=== PATIENT | male | born 1970 | race American Indian/Alaskan Native ===

== ENCOUNTER 2019-01-07 08:02 | Inpatient (IN) | payer MEDICAID ==
[2019-01-07] MEDS ORDERED: DUONEB *Not for PRN Use IH ONE (10:28)
--- NOTE | 2019-01-07 11:13 | XRay Report ---
AP CHEST: HISTORY: Dyspnea Moderate cardiomegaly and mild pulmonary venous congestion are identified. Trace bilateral pleural effusions could be present. No evidence for infiltrate or pneumothorax. The bony structures are grossly intact. IMPRESSION: Mild CHF.
--- NOTE | 2019-01-07 11:14 | Emergency Department Report ---
HPI - General Chief Complaint: Dyspnea/Respdistress Time Seen by Provider: 01/07/19 10:21 - HPI HPI: 48-year-old -Sy[place] male presents to the emergency department with a complaint of some shortness of breath and chest tightness has been going on s cristina last night. The shortness of breath worsens with laying flat or with exertion. He denies any significant lower extremity swelling. He has a past medical history of hypertension and CHF. He takes Bumex 2 g, which he took this morning. He denies any tobacco or illicit drug use. No recent travel or sick contacts at home. He does not have a primary care physician but his patient services clerk is Dr. Gr. ED Past Medical Hx - Social History Smoking Status: Never Smoker Substance Use Type: None - Medications Home Medications: Home Medications Medication Instructions Recorded Confirmed Last Taken Type Amlodipine Besylate [Norvasc] 5 mg PO QDAY 01/07/19 01/07/19 Unknown History Aspirin [Adult Aspirin] 81 mg PO DAILY 01/07/19 01/07/19 Unknown History Bumetanide [Bumetanide 2 mg tab] 2 mg PO DAILY 01/07/19 01/07/19 01/07/19 History Carvedilol [Coreg] 25 mg PO BID 01/07/19 01/07/19 01/07/19 History Ranitidine HCl [Zantac] 150 mg PO BID 01/07/19 01/07/19 Unknown History ED Review of Systems ROS: Stated complaint: shortness of breath Other details as noted in HPI Comment: All other systems reviewed and negative Constitutional: denies: chills, fever Eyes: denies: eye pain, vision change ENT: denies: ear pain, throat pain Respiratory: cough, shortness of breath Cardiovascular: chest pain. denies: palpitations Gastrointestinal: denies: abdominal pain, vomiting Genitourinary: denies: dysuria, discharge Musculoskeletal: denies: back pain, arthralgia Skin: denies: rash, lesions Neurological: denies: headache, weakness Physical Exam - Physical Exam Vital Signs: Vital Signs 01/07/19 01/07/19 01/07/19 08:16 08:47 09:00 Temperature 98.4 F Pulse Rate 85 79 80 Respiratory 22 28 H Rate Blood Pressure 154/125 126/95 O2 Sat by Pulse 98 97 95 Oximetry 01/07/19 01/07/19 01/07/19 09:15 09:30 09:45 Temperature Pulse Rate 80 80 77 Respiratory 25 H 26 H 22 Rate Blood Pressure 126/95 124/86 O2 Sat by Pulse 94 97 96 Oximetry 01/07/19 01/07/19 01/07/19 10:01 10:15 10:31 Temperature Pulse Rate 77 84 79 Respiratory 22 24 18 Rate Blood Pressure 179/104 179/104 179/104 O2 Sat by Pulse 95 98 97 Oximetry 01/07/19 10:45 Temperature Pulse Rate Respiratory Rate Blood Pressure 179/104 O2 Sat by Pulse 97 Oximetry Physical Exam: GENERAL: The patient is well-developed well-nourished. HENT: Normocephalic. Atraumatic. Patient has moist mucous membranes. EYES: Extraocular motions are intact. Pupils equal reactive to light bilaterally. NECK: Supple. Trachea is midline. CHEST/LUNGS: Coarse breath sounds. There is some mild tachypnea but no accessory muscle use.. There is no respiratory distress noted. HEART/CARDIOVASCULAR: Regular. There is no tachycardia. There is no murmur. ABDOMEN: Abdomen is soft, nontender. Patient has normal bowel sounds. There is no abdominal distention. SKIN: One plus pitting edema to the bilateral lower extremities. NEURO: The patient is awake, alert, and oriented. The patient is cooperative. The patient has no focal neurologic deficits. The patient has normal speech. MUSCULOSKELETAL: There is no tenderness or deformity. There is no evidence of acute injury. ED Course Vital Signs 01/07/19 01/07/19 01/07/19 08:16 08:47 09:00 Temperature 98.4 F Pulse Rate 85 79 80 Respiratory 22 28 H Rate Blood Pressure 154/125 126/95 O2 Sat by Pulse 98 97 95 Oximetry 01/07/19 01/07/19 01/07/19 09:15 09:30 09:45 Temperature Pulse Rate 80 80 77 Respiratory 25 H 26 H 22 Rate Blood Pressure 126/95 124/86 O2 Sat by Pulse 94 97 96 Oximetry 01/07/19 01/07/19 01/07/19 10:01 10:15 10:31 Temperature Pulse Rate 77 84 79 Respiratory 22 24 18 Rate Blood Pressure 179/104 179/104 179/104 O2 Sat by Pulse 95 98 97 Oximetry 01/07/19 10:45 Temperature Pulse Rate Respiratory Rate Blood Pressure 179/104 O2 Sat by Pulse 97 Oximetry ED Medical Decision Making - Lab Data Result diagrams: 01/07/19 Unknown 01/07/19 Unknown - EKG Data -: EKG Interpreted by Me EKG shows normal: sinus rhythm, axis (left axis deviation), intervals, QRS complexes (incomplete left bundle-branch block, LVH), ST-T waves Rate: normal - EKG Data When compared to previous EKG there are: previous EKG unavailable Interpretation: other (sinus rhythm, left axis deviation, LVH, incomplete left bundle branch block) - Radiology Data Radiology results: report reviewed, image reviewed interpreted by me: Chest x-ray shows some pulmonary vascular congestion and mild basilar pleural effusions. No obvious pneumonia. No pneumothorax. CTA CHEST: HISTORY: Shortness of breath. COMPARISON: none. TECHNIQUE: Helical CT in 1.25mm intervals following IV contrast. Pulmonary embolus protocol. Sagittal and coronal reformatted images. Rotational MIP images. FINDINGS: Contrast bolus is satisfactory. No pulmonary embolus is identified. Thyroid gland: Normal. Tracheobronchial tree: Normal. Esophagus: Normal. Heart: Mild cardiomegaly. Pericardium: Normal. Mediastinum: Normal. Lung [place]: Mild pulmonary venous congestion. No parenchymal lung disease. Pleural Spaces: Trace right pleural effusion. Musculoskeletal: Intact. Mild thoracic spondylosis. IMPRESSION: No evidence for pulmonary embolus. Mild CHF. Transcribed By: TTR Dictated By: SELINA SMILEY JR, MD Electronically Authenticated By: SELINA SMILEY JR, MD Signed Date/Time: 01/07/19 1411 - Medical Decision Making Patient presents to emergency department with some chest pain, shortness of breath, orthopnea and dyspnea with exertion. He has a history of CHF and appears to be having an exacerbation. Chest x-ray shows some signs of volume overload. BNP is about 1300. First troponin was negative, but the patient did have an elevated and equivocal d-dimer. CT angiography of the chest was done that did not show any pulmonary embolism but does confirm signs of CHF. He was given some pain medication and some Lasix to start diuresis. Patient will be admitted to the hospital for further evaluation and treatment was accepted for admission by the hospitalist, Dr Reilly. - Differential Diagnosis CHF, Pneumonia, PE, HI Critical Care Time: No Critical care attestation.: If time is entered above; I have spent that time in minutes in the direct care of this critically ill patient, excluding procedure time. ED Disposition Clinical Impression: Acute chest pain, Acute on chronic diastolic CHF (congestive heart failure) Disposition: OP ADMIT IP TO THIS HOSP Is pt being admited?: Yes Condition: Fair Instructions: Chest Pain (ED) Referrals: EARNESTINE WASHINGTON MD [Primary Care Provider] - 3-5 Days Time of Disposition: 17:05
[2019-01-07 11:25] LABS: Alanine Aminotransferase 12 units/L (7-56); Albumin 3.7 g/dL (3.9-5); BUN/Creatinine Ratio 18; Blood Urea Nitrogen 22 mg/dL (9-20); Calcium 8.4 mg/dL (8.4-10.2); Hemolysis Index 21
[2019-01-07] MEDS ORDERED: APRESOLINE IV ONE (11:28)
[2019-01-07] MEDS ORDERED: MORPHINE IM ONE (11:35)
[2019-01-07 11:55] LABS: Basophils # (Auto) 0.1 K/mm3 (0.0-0.1); Eosinophils # (Auto) 0.2 K/mm3 (0.0-0.4); Eosinophils % (Auto) 2.5 % (0.0-4.3); Hemoglobin 14.1 gm/dl (11.8-15.2); Lymphocytes # (Auto) 1.7 K/mm3 (1.2-5.4); Lymphocytes % (Auto) 23.9 % (13.4-35.0); Mean Corpuscular HGB Conc 34 % (32-34); Mean Corpuscular Volume 98 fl (84-94); Monocytes # (Auto) 0.7 K/mm3 (0.0-0.8); Monocytes % (Auto) 9.7 % (0.0-7.3); Platelet Count 186 K/mm3 (140-440); Red Blood Count 4.28 M/mm3 (3.65-5.03); Red Cell Distribution Width 13.8 % (13.2-15.2)
--- NOTE | 2019-01-07 14:16 | Cat Scan Report ---
CTA CHEST: HISTORY: Shortness of breath. COMPARISON: none. TECHNIQUE: Helical CT in 1.25mm intervals following IV contrast. Pulmonary embolus protocol. Sagittal and coronal reformatted images. Rotational MIP images. FINDINGS: Contrast bolus is satisfactory. No pulmonary embolus is identified. Thyroid gland: Normal. Tracheobronchial tree: Normal. Esophagus: Normal. Heart: Mild cardiomegaly. Pericardium: Normal. Mediastinum: Normal. Lung [place]: Mild pulmonary venous congestion. No parenchymal lung disease. Pleural Spaces: Trace right pleural effusion. Musculoskeletal: Intact. Mild thoracic spondylosis. IMPRESSION: No evidence for pulmonary embolus. Mild CHF.
[2019-01-07] MEDS ORDERED: MORPHINE IV ONE ×2 (14:32→17:02)
[2019-01-07] MEDS ORDERED: LASIX IV ONE (14:36)
--- NOTE | 2019-01-07 16:07 | History and Physical Report ---
History of Present Illness Chief complaint: I cant breathe History of present illness: 48 YO Male with Obesity Hypoventilation, HTN, CHF presents to ED for evaluation. Pt states that he has experienced shortness of breath and chest discomfort over the past 2 days with worsening symptoms over the past 12 hours. Pt acknowledges Orthopnea/PND, leg edema, decreased exercise tolerance, dypsnea on exertion as well as dypsnea at rest. Pt denies medication noncompliance. Pt acknowledges dietary noncompliance as well as 10-15lbs weight gain over the past 1-2 weeks. Pt transported to [facility] via private vehicle. Pt seen and evaluated in ED and found to have symptoms consistent with CHF Decompensation. Pt admitted to telemetry and initiated on CHF protocol. Cardiology team consulted in ED. Pt denies fever, chills, CP, Palpitations, NVD, Trauma, Unintentional weight loss, night sweats, productive cough, skin rash, prolonged travel/immobility, Individual/Family history of DVT/PE/Blood Clotting Disorders, or recent ill contacts. No prior admission for review. All listed medication reconciled at time of admission. Past History Past Medical History: heart failure, hypertension, other (Obesity Hypoventilation) Past Surgical History: No surgical history, Other (reviewed) Social history: single. denies: smoking, alcohol abuse, prescription drug abuse Family history: CAD, diabetes, hypertension Medications and Allergies Allergies Allergy/AdvReac Type Severity Reaction Status Date / Time lisinopril Allergy Angioedema Verified 01/07/19 08:07 tramadol Allergy Rash Verified 01/07/19 08:08 Home Medications Medication Instructions Recorded Confirmed Last Taken Type Amlodipine Besylate [Norvasc] 5 mg PO QDAY 01/07/19 01/07/19 Unknown History Aspirin [Adult Aspirin] 81 mg PO DAILY 01/07/19 01/07/19 Unknown History Bumetanide [Bumetanide 2 mg tab] 2 mg PO DAILY 01/07/19 01/07/19 01/07/19 History Carvedilol [Coreg] 25 mg PO BID 01/07/19 01/07/19 01/07/19 History Ranitidine HCl [Zantac] 150 mg PO BID 01/07/19 01/07/19 Unknown History Review of Systems Constitutional: weight gain, no weight loss, no chills, no sweats, no night sweats Ears, nose, mouth and throat: no ear pain, no ear discharge, no tinnitis, no decreased hearing, no nasal congestion, no nasal discharge Cardiovascular: orthopnea, edema, shortness of breath, dyspnea on exertion, paroxysmal nocturnal dyspnea, high blood pressure, decreased exercise tolerance, no chest pain, no palpitations, no rapid/irregular heart beat Respiratory: no cough, no cough with sputum, no excessive sputum, no hemoptysis, no shortness of breath Gastrointestinal: no nausea, no vomiting, no diarrhea, no constipation Genitourinary Male: no hematuria, no flank pain, no discharge, no urinary frequency Rectal: no pain, no incontinence, no bleeding Musculoskeletal: no neck stiffness, no neck pain, no shooting arm pain, no arm numbness/tingling, no low back pain, no shooting leg pain Integumentary: no rash, no pruritis, no redness, no sores, no wounds Neurological: no transient paralysis, no paralysis, no weakness, no parathesias, no numbness, no tingling Psychiatric: no memory loss, no change in sleep habits, no sleep disturbances, no insomnia, no hypersomnia, no change in appetite, no change in libido Endocrine: no cold intolerance, no heat intolerance, no polyphagia, no excessive thirst, no polydipsia, no polyuria Hematologic/Lymphatic: no easy bruising, no easy bleeding, no lymphadenopathy, no lymphedema Allergic/Immunologic: no urticaria, no allergic rhinitis, no wheezing, no persistent infections, no anaphylaxis Exam - Constitutional Vitals: Temp Pulse Resp BP Pulse Ox 98.4 F 75 21 142/90 96 01/07/19 08:16 01/07/19 15:00 01/07/19 15:00 01/07/19 15:00 01/07/19 15:00 General appearance: Present: mild distress, obese - EENT Eyes: Present: PERRL ENT: hearing intact, clear oral mucosa - Neck Neck: Present: supple, normal ROM - Respiratory Respiratory effort: normal Respiratory: bilateral: diminished, rhonchi - Cardiovascular Heart Sounds: Present: S1 & S2. Absent: rub, click - Extremities Extremities: pulses symmetrical Extremity abnormal: edema Peripheral Pulses: within normal limits - Abdominal General gastrointestinal: Present: soft, non-tender, non-distended, normal bowel sounds Male genitourinary: Present: normal - Integumentary Integumentary: Present: clear, warm, dry - Musculoskeletal Musculoskeletal: gait normal, strength equal bilaterally - Psychiatric Psychiatric: appropriate mood/affect, intact judgment & insight - Neurologic Neurologic: CNII-XII intact, moves all extremities Results - Labs CBC & Chem 7: 01/07/19 Unknown 01/07/19 Unknown Labs: Abnormal lab results 01/07/19 01/07/19 01/07/19 Range/Units Unknown Unknown Unknown MCV 98 H (84-94) fl MCH 33 H (28-32) pg [place] % (Auto) 9.7 H (0.0-7.3) % D-Dimer 416.80 H (0-234) ng/mlDDU Potassium 3.5 L (3.6-5.0) mmol/L BUN 22 H (9-20) mg/dL NT-Pro-B Natriuret Pep 1474 H (0-450) pg/mL Albumin 3.7 L (3.9-5) g/dL Assessment and Plan - Patient Problems (1) Acute on chronic diastolic CHF (congestive heart failure) Current Visit: Yes Status: Acute Plan to address problem: CHF Protocol: Admit to telemetry, Cardiology consulted in ED, Strict I/O, Daily weight, monitor uop q shift, pulse oximetry, Echo, BNP, chest x ray, (2) Obesity hypoventilation syndrome Current Visit: Yes Status: Acute Plan to address problem: Supplemental oxygen, nebulizer therapy, NIPPV as clinically indicated, pulse oximetry, Ddimer, CTA chest. (3) HTN (hypertension) Current Visit: Yes Status: Acute Qualifiers: Hypertension type: essential hypertension Qualified Code(s): I10 - Essential (primary) hypertension Plan to address problem: Monitor bp q shift, continue medical management. (4) DVT prophylaxis Current Visit: Yes Status: Acute Plan to address problem: SCD to BLE while in bed. prophylactic lovenox
[2019-01-07] MEDS ORDERED: SODIUM CHLORIDE FLUSH SYRINGE 10 ML IV PRN (16:32)
[2019-01-07] MEDS ORDERED: PROVENTIL IH PRN (16:32)
[2019-01-07 17:15] LABS: Free T4 (Free Thyroxine) 1.47 ng/dL (0.76-1.46)
[2019-01-07] MEDS: LASIX IV SCH (18:02)
[2019-01-07] MEDS ORDERED: NON-FORMULARY (Ranitidine Hcl [Zantac] 150 MG) PO SCH (22:00)
[2019-01-07] MEDS: PEPCID PO SCH (22:25)
[2019-01-07] MEDS: COREG PO SCH (22:25)
[2019-01-07] MEDS: LOVENOX SUB-Q SCH (22:26)
[2019-01-07] MEDS: SODIUM CHLORIDE FLUSH SYRINGE 10 ML IV SCH (22:27)
[2019-01-08] MEDS: LASIX IV SCH ×2 (06:28→17:55)
--- NOTE | 2019-01-08 09:47 | Consultation ---
History of Present Illness Consult date: 01/08/19 Consult reason: congestive heart failure History of present illness: This patient is a 48-year old man with nonischemic cardiomyopathy by cardiac catheterization done at [place] in 2013 that documents no significant coronary artery disease but a decreased left ventricular ejection fraction 15-20%. His triple drum operator is at [facility]. He has been recommended for an ICD but for unclear reasons this has not been done. Patient presents to this hospital with shortness of breath, orthopnea, admitted with decompensated heart failure. Patient reports he stopped taking Lisinopril due to angioedema but reports he takes Bumex daily. He denies lower extremity edema. Chest x-ray reports cardiomegaly with mild interstitial edema. No evidence of pulmonary embolism by chest CT scan. An ECG is sinus rhythm, LVH with an incomplete left bundle branch block. A cardiac consultation has been requested for further CHF management. Past History Past Medical History: heart failure, hypertension Social history: single. denies: smoking, alcohol abuse, prescription drug abuse Family history: CAD, diabetes, hypertension Medications and Allergies Allergies Allergy/AdvReac Type Severity Reaction Status Date / Time lisinopril Allergy Angioedema Verified 01/07/19 08:07 tramadol Allergy Rash Verified 01/07/19 08:08 Home Medications Medication Instructions Recorded Confirmed Last Taken Type Amlodipine Besylate [Norvasc] 5 mg PO QDAY 01/07/19 01/07/19 Unknown History Aspirin [Adult Aspirin] 81 mg PO DAILY 01/07/19 01/07/19 Unknown History Bumetanide [Bumetanide 2 mg tab] 2 mg PO DAILY 01/07/19 01/07/19 01/07/19 History Carvedilol [Coreg] 25 mg PO BID 01/07/19 01/07/19 01/07/19 History Ranitidine HCl [Zantac] 150 mg PO BID 01/07/19 01/07/19 Unknown History Active Meds: Active Medications Acetaminophen (Tylenol) 650 mg PO Q4H PRN PRN Reason: Pain MILD(1-3)/Fever >100.5/PHELPS Albuterol (Proventil) 2.5 mg IH Q4HRT PRN PRN Reason: Shortness Of Breath Amlodipine Besylate (Norvasc) 5 mg PO QDAY LUKE Aspirin (Halfprin Ec) 81 mg PO DAILY LUKE Carvedilol (Coreg) 25 mg PO BID [facility] Last Admin: 01/07/19 22:25 Dose: 25 mg Documented by: Enoxaparin Sodium (Lovenox) 40 mg SUB-Q QDAY@2200 [facility] Last Admin: 01/07/19 22:26 Dose: 40 mg Documented by: Famotidine (Pepcid) 20 mg PO BID [facility] Last Admin: 01/07/19 22:25 Dose: 20 mg Documented by: Furosemide (Lasix) 20 mg IV BID@0600,1800 [facility] Last Admin: 01/08/19 06:28 Dose: 20 mg Documented by: Ondansetron HCl (Zofran) 4 mg IV Q8H PRN PRN Reason: Nausea And Vomiting Sodium Chloride (Sodium Chloride Flush Syringe 10 Ml) 10 ml IV BID [facility] Last Admin: 01/07/19 22:27 Dose: 10 ml Documented by: Sodium Chloride (Sodium Chloride Flush Syringe 10 Ml) 10 ml IV PRN PRN PRN Reason: LINE FLUSH Last Admin: 01/08/19 06:29 Dose: 10 ml Documented by: Physical Examination Vital Signs Temp Pulse Resp BP Pulse Ox 98.4 F 85 22 154/125 98 01/07/19 08:16 01/07/19 08:16 01/07/19 08:16 01/07/19 08:16 01/07/19 08:16 General appearance: no acute distress, obese HEENT: Positive: PERRL Cardiac: Positive: Reg Rate and Rhythm Lungs: Positive: Decreased Breath Sounds Results 01/07/19 Unknown 01/08/19 05:57 Cardiac Enzymes 01/07/19 Range/Units Unknown AST 17 (5-40) units/L CBC 01/07/19 Range/Units Unknown WBC 7.0 (4.5-11.0) K/mm3 RBC 4.28 (3.65-5.03) M/mm3 Hgb 14.1 (11.8-15.2) gm/dl Hct 42.0 (35.5-45.6) % Plt Count 186 (140-440) K/mm3 Lymph # 1.7 (1.2-5.4) K/mm3 [place] # 0.7 (0.0-0.8) K/mm3 Eos # 0.2 (0.0-0.4) K/mm3 Baso # 0.1 (0.0-0.1) K/mm3 Comprehensive Metabolic Panel 01/07/19 01/08/19 Range/Units Unknown 05:57 Sodium 140 (137-145) mmol/L Potassium 3.5 L 3.7 (3.6-5.0) mmol/L Chloride 99.1 (98-107) mmol/L Carbon Dioxide 26 (22-30) mmol/L BUN 22 H (9-20) mg/dL Creatinine 1.2 (0.8-1.5) mg/dL Glucose 88 (75-100) mg/dL Calcium 8.4 (8.4-10.2) mg/dL AST 17 (5-40) units/L ALT 12 (7-56) units/L Alkaline Phosphatase 68 (35-129) units/L Total Protein 7.6 (6.3-8.2) g/dL Albumin 3.7 L (3.9-5) g/dL Assessment and Plan Decompensated systolic heart failure Hypertension BAHMAN-i allergy No significant CAD, EF 15-20% by [facility] at [facility] in 2013. Echocardiogram for LVEF reassessment. Medical therapy for acute systolic heart failure as tolerated.
[2019-01-08] MEDS ORDERED: NON-FORMULARY (Bumetanide [Bumetanide 2 Mg Tab] 2 MG) PO SCH (10:00)
[2019-01-08] MEDS: HALFPRIN EC PO SCH (10:21)
[2019-01-08] MEDS: NORVASC PO SCH (10:21)
[2019-01-08] MEDS: COREG PO SCH ×2 (10:21→21:30)
[2019-01-08] MEDS: PEPCID PO SCH ×2 (10:21→21:30)
[2019-01-08] MEDS: SODIUM CHLORIDE FLUSH SYRINGE 10 ML IV SCH ×2 (10:27→21:33)
[2019-01-08] MEDS: MORPHINE IV PRN ×2 (11:27→17:55)
[2019-01-08] MEDS: ALDACTONE PO SCH (11:27)
--- NOTE | 2019-01-08 11:53 | Progress Note ---
Assessment and Plan Assessment and plan: Acute on chronic systolic heart failure. Continue IV diuresis per cardiology. Continue GDMT. Catheterization in 2013 revealed normal coronaries but EF of 15% Nonischemic cardiomyopathy. MRI 2013 revealed left ventricular EF 47% and findings consistent with nonischemic cardiomyopathy. Lisinopril allergy. Lisinopril causing Angioedema. Incomplete left bundle branch block. History Interval history: his patient is a 48-year old man with nonischemic cardiomyopathy by cardiac catheterization done at [place] in 2013 that documents no significant coronary artery disease but a decreased left ventricular ejection fraction 15-20%. His gaming manager is at [facility]. He has been recommended for an ICD but for unclear reasons this has not been done. Patient presents to this hospital with shortness of breath, orthopnea, admitted with decompensated heart failure. Patient reports he stopped taking Lisinopril due to angioedema but reports he takes Bumex daily. He denies lower extremity edema. Chest x-ray reported cardiomegaly with mild interstitial edema. No evidence of pulmonary embolism by chest CT scan. An ECG is sinus rhythm, LVH with an incomplete left bundle branch block. A cardiac consultation was obtained for CHF management. Hospitalist Physical - Constitutional Vitals: Temp Pulse Resp BP Pulse Ox 98.4 F 81 16 132/89 95 01/08/19 08:21 01/08/19 08:21 01/08/19 08:21 01/08/19 08:21 01/08/19 08:21 General appearance: Present: no acute distress, obese - EENT Eyes: Present: PERRL, EOM intact ENT: hearing intact, clear oral mucosa, dentition normal - Neck Neck: Present: supple, normal ROM - Respiratory Respiratory effort: normal Respiratory: bilateral: CTA - Cardiovascular Rhythm: regular Heart Sounds: Present: S1 & S2. Absent: gallop, rub - Extremities Extremities: no ischemia, No edema, Full ROM - Abdominal General gastrointestinal: soft, non-tender, non-distended, normal bowel sounds - Integumentary Integumentary: Present: clear, warm, dry - Neurologic Neurologic: CNII-XII intact, moves all extremities Results - Labs CBC & Chem 7: 01/07/19 Unknown 01/08/19 05:57 Labs: Laboratory Last Values WBC 7.0 K/mm3 (4.5-11.0) 01/07/19 Unknown RBC 4.28 M/mm3 (3.65-5.03) 01/07/19 Unknown Hgb 14.1 gm/dl (11.8-15.2) 01/07/19 Unknown Hct 42.0 % (35.5-45.6) 01/07/19 Unknown MCV 98 fl (84-94) H 01/07/19 Unknown MCH 33 pg (28-32) H 01/07/19 Unknown MCHC 34 % (32-34) 01/07/19 Unknown RDW 13.8 % (13.2-15.2) 01/07/19 Unknown Plt Count 186 K/mm3 (140-440) 01/07/19 Unknown Lymph % (Auto) 23.9 % (13.4-35.0) 01/07/19 Unknown [place] % (Auto) 9.7 % (0.0-7.3) H 01/07/19 Unknown Eos % (Auto) 2.5 % (0.0-4.3) 01/07/19 Unknown Baso % (Auto) Records Manager 01/07/19 Unknown Lymph # 1.7 K/mm3 (1.2-5.4) 01/07/19 Unknown [place] # 0.7 K/mm3 (0.0-0.8) 01/07/19 Unknown Eos # 0.2 K/mm3 (0.0-0.4) 01/07/19 Unknown Baso # 0.1 K/mm3 (0.0-0.1) 01/07/19 Unknown Seg Neutrophils % 63.2 % (40.0-70.0) 01/07/19 Unknown Seg Neutrophils # 4.4 K/mm3 (1.8-7.7) 01/07/19 Unknown 416.80 ng/mlDDU (0-234) H 01/07/19 Unknown Sodium 140 mmol/L (137-145) 01/07/19 Unknown Potassium 3.7 mmol/L (3.6-5.0) 01/08/19 05:57 Chloride 99.1 mmol/L (98-107) 01/07/19 Unknown Carbon Dioxide 26 mmol/L (22-30) 01/07/19 Unknown 18 mmol/L 01/07/19 Unknown BUN 22 mg/dL (9-20) H 01/07/19 Unknown 1.2 mg/dL (0.8-1.5) 01/07/19 Unknown Estimated GFR > 60 ml/min 01/07/19 Unknown 18 % 01/07/19 Unknown Glucose 88 mg/dL (75-100) 01/07/19 Unknown Calcium 8.4 mg/dL (8.4-10.2) 01/07/19 Unknown Magnesium 1.80 mg/dL (1.7-2.3) 01/07/19 Unknown 0.80 mg/dL (0.1-1.2) 01/07/19 Unknown AST 17 units/L (5-40) 01/07/19 Unknown ALT 12 units/L (7-56) 01/07/19 Unknown 68 units/L (35-129) 01/07/19 Unknown < 0.010 ng/mL (0.00-0.029) 01/07/19 Unknown NT-Pro-B Natriuret Pep 1474 pg/mL (0-450) H 01/07/19 Unknown 7.6 g/dL (6.3-8.2) 01/07/19 Unknown 3.7 g/dL (3.9-5) L 01/07/19 Unknown 0.9 % 01/07/19 Unknown TSH 2.950 mlU/mL (0.270-4.200) 01/07/19 Unknown Free T4 1.47 ng/dL (0.76-1.46) H 01/07/19 Unknown Active Medications - Current Medications Current Medications: Generic Name Dose Route Start Last Admin Trade Name Freq PRN Reason Stop Dose Admin Acetaminophen 650 mg 01/07/19 16:32 Tylenol PO Q4H PRN Pain MILD(1-3)/Fever >100.5/PHELPS Albuterol 2.5 mg 01/07/19 16:32 Proventil IH Q4HRT PRN Shortness Of Breath Amlodipine Besylate 5 mg 01/08/19 10:00 01/08/19 10:21 Norvasc PO 5 mg QDAY LUKE Administration Aspirin 81 mg 01/08/19 10:00 01/08/19 10:21 Halfprin Ec PO 81 mg DAILY LUKE Administration Carvedilol 25 mg 01/07/19 22:00 01/08/19 10:21 Coreg PO 25 mg BID LUKE Administration Enoxaparin Sodium 40 mg 01/07/19 22:00 01/07/19 22:26 Lovenox SUB-Q 40 mg QDAY@2200 LUKE Administration Famotidine 20 mg 01/07/19 22:00 01/08/19 10:21 Pepcid PO 20 mg BID LUKE Administration Furosemide 20 mg 01/07/19 18:00 01/08/19 06:28 Lasix IV 20 mg BID@0600,1800 LUKE Administration Isosorbide Dinitrate/Hydralazine 1 each 01/08/19 14:00 Bidil 20/37.5mg PO Q8HR LUKE Morphine Sulfate 2 mg 01/08/19 10:23 01/08/19 11:27 Morphine IV 2 mg Q6H PRN Administration Pain, Moderate (4-6) Ondansetron HCl 4 mg 01/07/19 16:32 Zofran IV Q8H PRN Nausea And Vomiting Sodium Chloride 10 ml 01/07/19 22:00 01/08/19 10:27 Sodium Chloride Flush Syringe 10 Ml IV 10 ml BID LUKE Administration Sodium Chloride 10 ml 01/07/19 16:32 01/08/19 06:29 Sodium Chloride Flush Syringe 10 Ml IV 10 ml PRN PRN Administration LINE FLUSH Spironolactone 25 mg 01/08/19 11:00 01/08/19 11:27 Aldactone PO 25 mg QDAY LUKE Administration
[2019-01-08] MEDS: BIDIL 20/37.5MG PO SCH ×2 (14:24→21:30)
[2019-01-08] MEDS: LOVENOX SUB-Q SCH (21:30)
[2019-01-08] MEDS: PERCOCET 5/325 PO PRN (22:21)
[2019-01-09] MEDS: MORPHINE IV PRN (02:39)
[2019-01-09] MEDS: PERCOCET 5/325 PO PRN (06:17)
[2019-01-09] MEDS: BIDIL 20/37.5MG PO SCH ×3 (06:17→21:24)
[2019-01-09] MEDS: LASIX IV SCH ×2 (06:18→17:21)
[2019-01-09] MEDS: ZOFRAN IV PRN (07:32)
--- NOTE | 2019-01-09 09:19 | Progress Note ---
Assessment and Plan 1. Chronic combined systolic and diastolic heart failure 2. Dilated nonischemic cardiomyopathy left ventricular ejection fraction 15-20% 3. Essential hypertension 4. Obesity Plan. Continue diuresis and present medication daily weights. He will follow-up with his underwear hemmer on discharge Subjective Date of service: 01/09/19 Interval history: Weak and fatigued Objective Vital Signs Temp Pulse Resp BP Pulse Ox 01/09/19 08:40 97.5 F L 67 16 119/84 97 01/09/19 04:23 97.8 F 67 18 114/73 94 01/08/19 23:25 98.1 F 74 18 121/86 95 01/08/19 22:56 74 01/08/19 20:20 22 01/08/19 19:59 98 01/08/19 19:21 98.1 F 79 16 127/95 96 01/08/19 16:16 98.6 F 74 18 126/90 99 01/08/19 12:08 98.3 F 75 20 130/92 97 01/08/19 10:00 97 - Physical Examination General: Other (Obese) HEENT: Positive: PERRL Neck: Positive: neck supple, trachea midline. Negative: JVD/HJR Cardiac: Positive: Reg Rate and Rhythm, S1/S2, S3, S4, PMI, Dilated, Laterally Displaced Lungs: Positive: Normal Exam, clear to auscultation, No Wheeze, Rales, Rhonchi Neuro: Abdomen: Extremities: Present: +1 Edema
[2019-01-09] MEDS: COREG PO SCH ×2 (10:03→21:21)
[2019-01-09] MEDS: ALDACTONE PO SCH (10:03)
[2019-01-09] MEDS: NORVASC PO SCH (10:04)
[2019-01-09] MEDS: HALFPRIN EC PO SCH (10:04)
[2019-01-09] MEDS: PEPCID PO SCH ×2 (10:04→21:21)
[2019-01-09] MEDS: SODIUM CHLORIDE FLUSH SYRINGE 10 ML IV SCH ×2 (10:08→21:21)
--- NOTE | 2019-01-09 10:31 | Progress Note ---
Assessment and Plan Assessment and plan: Acute hypoxic respiratory failure. Etiology secondary to CHF exacerbation. D- dimer was elevated but CTA negative for PE. Acute on chronic combined systolic and diastolic heart failure. Continue IV diu resis per cardiology. Continue GDMT. Catheterization in 2013 revealed normal coronaries but EF of 15%. Dilated Nonischemic cardiomyopathy. MRI 2013 revealed findings consistent with nonischemic cardiomyopathy. Hypertension. Continue antihypertensive medications. Lisinopril allergy. Lisinopril causing Angioedema. Incomplete left bundle branch block. History Interval history: This patient is a 48-year old man with nonischemic cardiomyopathy by cardiac catheterization done at [place] in 2013 that documents no significant coronary artery disease but a decreased left ventricular ejection fraction 15-20%. His dispatch specialist is at [facility]. He has been recommended for an ICD but for unclear reasons this has not been done. Patient presents to this hospital with shortness of breath, orthopnea, admitted with decompensated heart failure. Patient reports he stopped taking Lisinopril due to angioedema but reports he takes Bumex daily. He denies lower extremity edema. Chest x-ray reported cardiomegaly with mild interstitial edema. No ev idence of pulmonary embolism by chest CT scan. An ECG is sinus rhythm, LVH with an incomplete left bundle branch block. A cardiac consultation was obtained for CHF management. Hospitalist Physical - Constitutional Vitals: Temp Pulse Resp BP Pulse Ox 97.5 F L 67 16 119/84 97 01/09/19 08:40 01/09/19 10:04 01/09/19 08:40 01/09/19 10:04 01/09/19 08:40 General appearance: Present: no acute distress, obese - EENT Eyes: Present: PERRL, EOM intact ENT: hearing intact, clear oral mucosa, dentition normal - Neck Neck: Present: supple, normal ROM - Respiratory Respiratory effort: normal Respiratory: bilateral: CTA - Cardiovascular Rhythm: regular Heart Sounds: Present: S1 & S2. Absent: gallop, rub - Extremities Extremities: no ischemia, No edema, Full ROM - Abdominal General gastrointestinal: soft, non-tender, non-distended, normal bowel sounds - Integumentary Integumentary: Present: clear, warm, dry - Neurologic Neurologic: CNII-XII intact, moves all extremities Results - Labs CBC & Chem 7: 01/07/19 Unknown 01/08/19 05:57 Labs: Laboratory Last Values WBC 7.0 K/mm3 (4.5-11.0) 01/07/19 Unknown RBC 4.28 M/mm3 (3.65-5.03) 01/07/19 Unknown Hgb 14.1 gm/dl (11.8-15.2) 01/07/19 Unknown Hct 42.0 % (35.5-45.6) 01/07/19 Unknown MCV 98 fl (84-94) H 01/07/19 Unknown MCH 33 pg (28-32) H 01/07/19 Unknown MCHC 34 % (32-34) 01/07/19 Unknown RDW 13.8 % (13.2-15.2) 01/07/19 Unknown Plt Count 186 K/mm3 (140-440) 01/07/19 Unknown Lymph % (Auto) 23.9 % (13.4-35.0) 01/07/19 Unknown Hinds % (Auto) 9.7 % (0.0-7.3) H 01/07/19 Unknown Eos % (Auto) 2.5 % (0.0-4.3) 01/07/19 Unknown Baso % (Auto) Building Illuminating Engineer 01/07/19 Unknown Lymph # 1.7 K/mm3 (1.2-5.4) 01/07/19 Unknown Hinds # 0.7 K/mm3 (0.0-0.8) 01/07/19 Unknown Eos # 0.2 K/mm3 (0.0-0.4) 01/07/19 Unknown Baso # 0.1 K/mm3 (0.0-0.1) 01/07/19 Unknown Seg Neutrophils % 63.2 % (40.0-70.0) 01/07/19 Unknown Seg Neutrophils # 4.4 K/mm3 (1.8-7.7) 01/07/19 Unknown 416.80 ng/mlDDU (0-234) H 01/07/19 Unknown Sodium 140 mmol/L (137-145) 01/07/19 Unknown Potassium 3.7 mmol/L (3.6-5.0) 01/08/19 05:57 Chloride 99.1 mmol/L (98-107) 01/07/19 Unknown Carbon Dioxide 26 mmol/L (22-30) 01/07/19 Unknown 18 mmol/L 01/07/19 Unknown BUN 22 mg/dL (9-20) H 01/07/19 Unknown 1.2 mg/dL (0.8-1.5) 01/07/19 Unknown Estimated GFR > 60 ml/min 01/07/19 Unknown 18 % 01/07/19 Unknown Glucose 88 mg/dL (75-100) 01/07/19 Unknown Calcium 8.4 mg/dL (8.4-10.2) 01/07/19 Unknown Magnesium 1.80 mg/dL (1.7-2.3) 01/07/19 Unknown 0.80 mg/dL (0.1-1.2) 01/07/19 Unknown AST 17 units/L (5-40) 01/07/19 Unknown ALT 12 units/L (7-56) 01/07/19 Unknown 68 units/L (35-129) 01/07/19 Unknown < 0.010 ng/mL (0.00-0.029) 01/07/19 Unknown NT-Pro-B Natriuret Pep 1474 pg/mL (0-450) H 01/07/19 Unknown 7.6 g/dL (6.3-8.2) 01/07/19 Unknown 3.7 g/dL (3.9-5) L 01/07/19 Unknown 0.9 % 01/07/19 Unknown TSH 2.950 mlU/mL (0.270-4.200) 01/07/19 Unknown Free T4 1.47 ng/dL (0.76-1.46) H 01/07/19 Unknown Active Medications - Current Medications Current Medications: Generic Name Dose Route Start Last Admin Trade Name Freq PRN Reason Stop Dose Admin Acetaminophen 650 mg 01/07/19 16:32 Tylenol PO Q4H PRN Pain MILD(1-3)/Fever >100.5/PHELPS Albuterol 2.5 mg 01/07/19 16:32 Proventil IH Q4HRT PRN Shortness Of Breath Amlodipine Besylate 5 mg 01/08/19 10:00 01/09/19 10:04 Norvasc PO 5 mg QDAY LUKE Administration Aspirin 81 mg 01/08/19 10:00 01/09/19 10:04 Halfprin Ec PO 81 mg DAILY LUKE Administration Carvedilol 25 mg 01/07/19 22:00 01/09/19 10:03 Coreg PO 25 mg BID LUKE Administration Enoxaparin Sodium 40 mg 01/07/19 22:00 01/08/19 21:30 Lovenox SUB-Q 40 mg QDAY@2200 LUKE Administration Famotidine 20 mg 01/07/19 22:00 01/09/19 10:04 Pepcid PO 20 mg BID LUKE Administration Furosemide 20 mg 01/07/19 18:00 01/09/19 06:18 Lasix IV 20 mg BID@0600,1800 LUKE Administration Isosorbide Dinitrate/Hydralazine 1 each 01/08/19 14:00 01/09/19 06:17 Bidil 20/37.5mg PO 1 each Q8HR LUKE Administration Morphine Sulfate 2 mg 01/08/19 10:23 01/09/19 02:39 Morphine IV 2 mg Q6H PRN Administration Pain, Moderate (4-6) Ondansetron HCl 4 mg 01/07/19 16:32 01/09/19 07:32 Zofran IV 4 mg Q8H PRN Administration Nausea And Vomiting Oxycodone/Acetaminophen 1 tab 01/08/19 21:38 01/09/19 06:17 Percocet 5/325 PO 1 tab Q4H PRN Administration Pain, Moderate (4-6) Sodium Chloride 10 ml 01/07/19 22:00 01/09/19 10:08 Sodium Chloride Flush Syringe 10 Ml IV 10 ml BID LUKE Administration Sodium Chloride 10 ml 01/07/19 16:32 01/08/19 06:29 Sodium Chloride Flush Syringe 10 Ml IV 10 ml PRN PRN Administration LINE FLUSH Spironolactone 25 mg 01/08/19 11:00 01/09/19 10:03 Aldactone PO 25 mg QDAY LUKE Administration
[2019-01-09] MEDS: TYLENOL PO PRN (17:30)
[2019-01-09] MEDS: LOVENOX SUB-Q SCH (21:21)
[2019-01-09] MEDS: ATIVAN PO SCH (21:34)
[2019-01-10] MEDS: BIDIL 20/37.5MG PO SCH ×3 (06:21→21:43)
[2019-01-10] MEDS: LASIX IV SCH ×2 (06:46→17:34)
[2019-01-10 08:19] LABS: BUN/Creatinine Ratio 14; Blood Urea Nitrogen 18 mg/dL (9-20); Calcium 8.7 mg/dL (8.4-10.2); Hemolysis Index 5
[2019-01-10 08:28] LABS: Basophils % (Auto) 0.5 % (0.0-1.8); Eosinophils # (Auto) 0.3 K/mm3 (0.0-0.4); Eosinophils % (Auto) 6.1 % (0.0-4.3); Hematocrit 41.6 % (35.5-45.6); Lymphocytes # (Auto) 1.2 K/mm3 (1.2-5.4); Lymphocytes % (Auto) 20.2 % (13.4-35.0); Mean Corpuscular HGB Conc 34 % (32-34); Mean Corpuscular Volume 98 fl (84-94); Monocytes # (Auto) 0.7 K/mm3 (0.0-0.8); Monocytes % (Auto) 12.3 % (0.0-7.3); Platelet Count 193 K/mm3 (140-440); Red Blood Count 4.25 M/mm3 (3.65-5.03); Red Cell Distribution Width 13.9 % (13.2-15.2)
[2019-01-10] MEDS: COREG PO SCH ×2 (09:57→21:44)
[2019-01-10] MEDS: HALFPRIN EC PO SCH (09:58)
[2019-01-10] MEDS: ALDACTONE PO SCH (09:58)
[2019-01-10] MEDS: PEPCID PO SCH ×2 (09:58→21:44)
[2019-01-10] MEDS: NORVASC PO SCH (09:58)
[2019-01-10] MEDS: SODIUM CHLORIDE FLUSH SYRINGE 10 ML IV SCH ×2 (10:01→21:45)
--- NOTE | 2019-01-10 10:17 | Progress Note ---
Assessment and Plan 1. Chronic combined systolic and diastolic heart failure 2. Dilated nonischemic cardiomyopathy left ventricular ejection fraction 15-20% 3. Essential hypertension 4. Obesity Plan. Continue present medication daily weights. He will follow-up with his credit administration specialist on discharge Subjective Date of service: 01/10/19 Interval history: Weak and fatigued Objective Vital Signs Temp Pulse Resp BP Pulse Ox 01/10/19 09:58 72 147/99 01/10/19 09:57 72 147/99 01/10/19 07:49 98.6 F 73 20 147/99 94 01/10/19 04:19 98.1 F 75 18 125/85 100 01/09/19 23:53 98.1 F 72 18 122/87 98 01/09/19 22:00 70 01/09/19 20:01 22 01/09/19 19:19 98.5 F 71 18 124/87 97 01/09/19 15:11 78 126/70 01/09/19 12:03 97.7 F 68 16 129/78 96 01/09/19 11:00 16 - Physical Examination General: Other (Obese) HEENT: Positive: PERRL Neck: Positive: neck supple, trachea midline. Negative: JVD/HJR Cardiac: Positive: Regular Rate, S1/S2, S3, PMI, Dilated, Laterally Displaced Lungs: Positive: clear to auscultation, No Wheeze, Rales, Rhonchi Neuro: Positive: Grossly Intact Abdomen: Extremities: Present: +1 Edema - Labs and Meds CBC 01/10/19 Range/Units 06:42 WBC 5.7 (4.5-11.0) K/mm3 RBC 4.25 (3.65-5.03) M/mm3 Hgb 14.0 (11.8-15.2) gm/dl Hct 41.6 (35.5-45.6) % Plt Count 193 (140-440) K/mm3 Lymph # 1.2 (1.2-5.4) K/mm3 [place] # 0.7 (0.0-0.8) K/mm3 Eos # 0.3 (0.0-0.4) K/mm3 Baso # 0.0 (0.0-0.1) K/mm3 Comprehensive Metabolic Panel 01/10/19 Range/Units 06:42 Sodium 141 (137-145) mmol/L Potassium 3.5 L (3.6-5.0) mmol/L Chloride 98.8 (98-107) mmol/L Carbon Dioxide 31 H (22-30) mmol/L BUN 18 (9-20) mg/dL Creatinine 1.3 (0.8-1.5) mg/dL Glucose 97 (75-100) mg/dL Calcium 8.7 (8.4-10.2) mg/dL
--- NOTE | 2019-01-10 10:29 | Discharge Summary ---
Providers - Providers Date of Admission: 01/07/19 16:32 Date of discharge: 01/11/19 Attending physician: NITIN BETTENCOURT 01/07/19 16:35 Consult to Physician [CONS] Routine Comment: Consulting Provider: LOU GARCIA Physician Instructions: Reason For Exam: CHF [facility] Reason for admission: chf Condition: Fair Hospital course: This patient is a 48-year old man with nonischemic cardiomyopathy by cardiac catheterization done at [place] in 2013 that documents no significant coronary artery disease but a decreased left ventricular ejection fraction 15-20%. His general manager food is at [facility]. He has been recommended for an ICD but for unclear reasons this has not been done. Patient presented to this hospital with shortness of breath, orthopnea, admitted with decompensated heart failure. Patient reports he stopped taking Lisinopril due to angioedema but reports he takes Bumex daily. He denied lower extremity edema. Chest x-ray reported cardiomegaly with mild interstitial edema. No evidence of pulmonary embolism by chest CT scan. An ECG is sinus rhythm, LVH with an incomplete left bundle branch block. A cardiac consultation was obtained for CHF management. The patient received IV diuresis along with GDMT. Echocardiogram was completed on this hospitalization which revealed severe global hypokinesis of the left ventricle with EF 20-25%. Abnormal left ventricular diastolic function also observed. Right ventricular systolic pressure calculated at 49 mmHg. The patient's medications were optimized with amlodipine, aspirin, Coreg, Lasix and Aldactone. Patient is a follow-up with his primary general manager food. Dedicated discharge time 35 minutes. Disposition: TO HOME OR SELFCARE Time spent for discharge: 35 - Discharge Diagnoses (1) Acute on chronic diastolic CHF (congestive heart failure) Status: Acute (2) HTN (hypertension) Status: Acute Qualifiers: Hypertension type: essential hypertension Qualified Code(s): I10 - Essential (primary) hypertension (3) Obesity hypoventilation syndrome Status: Acute Core Measure Documentation - Palliative Care Palliative Care/ Comfort Measures: Not Applicable - Core Measures Any of the following diagnoses?: none Exam - Constitutional Vitals: Temp Pulse Resp BP Pulse Ox 98.6 F 72 20 147/99 94 01/10/19 07:49 01/10/19 10:14 01/10/19 10:14 01/10/19 09:58 01/10/19 10:14 General appearance: Present: no acute distress, well-nourished - EENT Eyes: Present: PERRL ENT: hearing intact, clear oral mucosa - Neck Neck: Present: supple, normal ROM - Respiratory Respiratory effort: normal Respiratory: bilateral: CTA - Cardiovascular Heart Sounds: Present: S1 & S2. Absent: rub, click - Extremities Extremities: pulses symmetrical, No edema Peripheral Pulses: within normal limits - Abdominal General gastrointestinal: Present: soft, non-tender, non-distended, normal bowel sounds Male genitourinary: Present: normal - Integumentary Integumentary: Present: clear, warm, dry - Musculoskeletal Musculoskeletal: gait normal, strength equal bilaterally - Psychiatric Psychiatric: appropriate mood/affect, intact judgment & insight - Neurologic Neurologic: CNII-XII intact, moves all extremities Plan Activity: no restrictions Weight Bearing Status: Full Weight Bearing Diet: low fat, low cholesterol, low salt Special Instructions: restrict fluid intake to (1L) [facility] [Primary Care Provider] - 3-5 Days Prescriptions: Aspirin [Adult Aspirin] 81 mg PO DAILY #30 tablet. Spironolactone [Aldactone] 25 mg PO QDAY #30 tablet Isosorb Dinit/Hydralazine [Bidil 20/37.5MG] 1 each PO Q8HR #90 tablet Bumetanide [Bumetanide 2 mg tab] 2 mg PO DAILY #30 tablet Carvedilol [Coreg] 25 mg PO BID #60 tablet Amlodipine Besylate [Norvasc] 5 mg PO QDAY #30 tablet Ranitidine HCl [Zantac] 150 mg PO BID #60 tablet
--- NOTE | 2019-01-10 12:13 | Progress Note ---
Assessment and Plan Assessment and plan: Acute hypoxic respiratory failure. Etiology secondary to CHF exacerbation. D- dimer was elevated but CTA negative for PE. Acute on chronic combined systolic and diastolic heart failure. Continue IV diu resis per cardiology. Continue GDMT. Catheterization in 2013 revealed normal coronaries but EF of 15%. Dilated Nonischemic cardiomyopathy. MRI 2013 revealed findings consistent with nonischemic cardiomyopathy. Hypertension. Continue antihypertensive medications. Lisinopril allergy. Lisinopril causing Angioedema. Incomplete left bundle branch block. - Patient Problems (1) Acute on chronic diastolic CHF (congestive heart failure) Current Visit: Yes Status: Acute (2) HTN (hypertension) Current Visit: Yes Status: Acute Qualifiers: Hypertension type: essential hypertension Qualified Code(s): I10 - Essential (primary) hypertension (3) Obesity hypoventilation syndrome Current Visit: Yes Status: Acute History Interval history: This patient is a 48-year old man with nonischemic cardiomyopathy by cardiac catheterization done at [place] in 2013 that documents no significant coronary artery disease but a decreased left ventricular ejection fraction 15-20%. His bisque kiln placer is at [facility]. He has been recommended for an ICD but for unclear reasons this has not been done. Patient presents to this hospital with shortness of breath, orthopnea, admitted with decompensated heart failure. Patient reports he stopped taking Lisinopril due to angioedema but reports he takes Bumex daily. He denies lower extremity edema. Chest x-ray reported cardiomegaly with mild interstitial edema. No evidence of pulmonary embolism by chest CT scan. An ECG is sinus rhythm, LVH with an incomplete left bundle branch block. A cardiac consultation was obtained for CHF management. Hospitalist Physical - Constitutional Vitals: Temp Pulse Resp BP Pulse Ox 98.6 F 72 20 147/99 94 01/10/19 07:49 01/10/19 10:14 01/10/19 10:14 01/10/19 09:58 01/10/19 10:14 General appearance: Present: no acute distress, well-nourished - EENT Eyes: Present: PERRL, EOM intact ENT: hearing intact, clear oral mucosa, dentition normal - Neck Neck: Present: supple, normal ROM - Respiratory Respiratory effort: normal Respiratory: bilateral: CTA - Cardiovascular Rhythm: regular Heart Sounds: Present: S1 & S2. Absent: gallop, rub - Extremities Extremities: no ischemia, No edema, Full ROM - Abdominal General gastrointestinal: soft, non-tender, non-distended, normal bowel sounds - Integumentary Integumentary: Present: clear, warm, dry - Neurologic Neurologic: CNII-XII intact, moves all extremities Results - Labs CBC & Chem 7: 01/10/19 06:42 01/10/19 06:42 Labs: Laboratory Last Values WBC 5.7 K/mm3 (4.5-11.0) 01/10/19 06:42 RBC 4.25 M/mm3 (3.65-5.03) 01/10/19 06:42 Hgb 14.0 gm/dl (11.8-15.2) 01/10/19 06:42 Hct 41.6 % (35.5-45.6) 01/10/19 06:42 MCV 98 fl (84-94) H 01/10/19 06:42 MCH 33 pg (28-32) H 01/10/19 06:42 MCHC 34 % (32-34) 01/10/19 06:42 RDW 13.9 % (13.2-15.2) 01/10/19 06:42 Plt Count 193 K/mm3 (140-440) 01/10/19 06:42 Lymph % (Auto) 20.2 % (13.4-35.0) 01/10/19 06:42 Holt % (Auto) 12.3 % (0.0-7.3) H 01/10/19 06:42 Eos % (Auto) 6.1 % (0.0-4.3) H 01/10/19 06:42 Baso % (Auto) 0.5 % (0.0-1.8) 01/10/19 06:42 Lymph # 1.2 K/mm3 (1.2-5.4) 01/10/19 06:42 Holt # 0.7 K/mm3 (0.0-0.8) 01/10/19 06:42 Eos # 0.3 K/mm3 (0.0-0.4) 01/10/19 06:42 Baso # 0.0 K/mm3 (0.0-0.1) 01/10/19 06:42 Seg Neutrophils % 60.9 % (40.0-70.0) 01/10/19 06:42 Seg Neutrophils # 3.5 K/mm3 (1.8-7.7) 01/10/19 06:42 416.80 ng/mlDDU (0-234) H 01/07/19 Unknown Sodium 141 mmol/L (137-145) 01/10/19 06:42 Potassium 3.5 mmol/L (3.6-5.0) L 01/10/19 06:42 Chloride 98.8 mmol/L (98-107) 01/10/19 06:42 Carbon Dioxide 31 mmol/L (22-30) H 01/10/19 06:42 15 mmol/L 01/10/19 06:42 BUN 18 mg/dL (9-20) 01/10/19 06:42 1.3 mg/dL (0.8-1.5) 01/10/19 06:42 Estimated GFR > 60 ml/min 01/10/19 06:42 14 % 01/10/19 06:42 Glucose 97 mg/dL (75-100) 01/10/19 06:42 Calcium 8.7 mg/dL (8.4-10.2) 01/10/19 06:42 Magnesium 1.80 mg/dL (1.7-2.3) 01/07/19 Unknown 0.80 mg/dL (0.1-1.2) 01/07/19 Unknown AST 17 units/L (5-40) 01/07/19 Unknown ALT 12 units/L (7-56) 01/07/19 Unknown 68 units/L (35-129) 01/07/19 Unknown < 0.010 ng/mL (0.00-0.029) 01/07/19 Unknown NT-Pro-B Natriuret Pep 1474 pg/mL (0-450) H 01/07/19 Unknown 7.6 g/dL (6.3-8.2) 01/07/19 Unknown 3.7 g/dL (3.9-5) L 01/07/19 Unknown 0.9 % 01/07/19 Unknown TSH 2.950 mlU/mL (0.270-4.200) 01/07/19 Unknown Free T4 1.47 ng/dL (0.76-1.46) H 01/07/19 Unknown Active Medications - Current Medications Current Medications: Generic Name Dose Route Start Last Admin Trade Name Freq PRN Reason Stop Dose Admin Acetaminophen 650 mg 01/07/19 16:32 01/09/19 17:30 Tylenol PO 650 mg Q4H PRN Administration Pain MILD(1-3)/Fever >100.5/PHELPS Albuterol 2.5 mg 01/07/19 16:32 Proventil IH Q4HRT PRN Shortness Of Breath Amlodipine Besylate 5 mg 01/08/19 10:00 01/10/19 09:58 Norvasc PO 5 mg QDAY LUKE Administration Aspirin 81 mg 01/08/19 10:00 01/10/19 09:58 Halfprin Ec PO 81 mg DAILY LUKE Administration Carvedilol 25 mg 01/07/19 22:00 01/10/19 09:57 Coreg PO 25 mg BID LUKE Administration Enoxaparin Sodium 40 mg 01/07/19 22:00 01/09/19 21:21 Lovenox SUB-Q 40 mg QDAY@2200 LUKE Administration Famotidine 20 mg 01/07/19 22:00 01/10/19 09:58 Pepcid PO 20 mg BID LUKE Administration Furosemide 20 mg 01/07/19 18:00 01/10/19 06:46 Lasix IV 20 mg BID@0600,1800 LUKE Administration Isosorbide Dinitrate/Hydralazine 1 each 01/08/19 14:00 01/10/19 06:21 Bidil 20/37.5mg PO Not Given Q8HR LUKE Lorazepam 0.5 mg 01/09/19 22:00 01/09/19 21:34 Ativan PO 0.5 mg QHS LUKE Administration Morphine Sulfate 2 mg 01/08/19 10:23 01/09/19 02:39 Morphine IV 2 mg Q6H PRN Administration Pain, Moderate (4-6) Ondansetron HCl 4 mg 01/07/19 16:32 01/09/19 07:32 Zofran IV 4 mg Q8H PRN Administration Nausea And Vomiting Oxycodone/Acetaminophen 1 tab 01/08/19 21:38 01/09/19 06:17 Percocet 5/325 PO 1 tab Q4H PRN Administration Pain, Moderate (4-6) Polyethylene Glycol 17 gm 01/10/19 12:00 Miralax 3350 PO QDAY LUKE Sodium Chloride 10 ml 01/07/19 22:00 01/10/19 10:01 Sodium Chloride Flush Syringe 10 Ml IV 10 ml BID LUKE Administration Sodium Chloride 10 ml 01/07/19 16:32 01/08/19 06:29 Sodium Chloride Flush Syringe 10 Ml IV 10 ml PRN PRN Administration LINE FLUSH Spironolactone 25 mg 01/08/19 11:00 01/10/19 09:58 Aldactone PO 25 mg QDAY LUKE Administration
[2019-01-10] MEDS: ZOFRAN IV PRN (18:14)
[2019-01-10] MEDS: MORPHINE IV PRN (18:14)
[2019-01-10] MEDS: MIRALAX 3350 PO SCH (18:21)
[2019-01-10] MEDS: LOVENOX SUB-Q SCH (21:44)
[2019-01-10] MEDS: TYLENOL PO PRN (21:44)
[2019-01-10] MEDS: ATIVAN PO SCH (21:44)
[2019-01-11] MEDS: LASIX IV SCH (05:19)
[2019-01-11] MEDS: BIDIL 20/37.5MG PO SCH (05:19)
[2019-01-11 08:06] VITALS: BP 118/86
[2019-01-11] MEDS: HALFPRIN EC PO SCH (09:22)
[2019-01-11] MEDS: COREG PO SCH (09:22)
[2019-01-11] MEDS: NORVASC PO SCH (09:22)
[2019-01-11] MEDS: MIRALAX 3350 PO SCH (09:22)
[2019-01-11] MEDS: ALDACTONE PO SCH (09:22)
[2019-01-11] MEDS: PEPCID PO SCH (09:22)
[2019-01-11] MEDS: SODIUM CHLORIDE FLUSH SYRINGE 10 ML IV SCH (09:23)
--- NOTE | 2019-01-11 09:44 | Progress Note ---
Assessment and Plan Decompensated systolic heart failure Hypertension BAHMAN-i allergy EF 20-25% by echocardiogram. No significant CAD, EF 15-20% by [facility] at [facility] in 2014. Medical therapy for acute systolic heart failure as tolerated. Patient should be considered for elective ICD therapy as per recommendation of his primary aircraft charter dispatcher. Subjective Date of service: 01/11/19 Objective Vital Signs Temp Pulse Pulse Resp BP Pulse Ox 01/11/19 08:04 98.9 F 74 20 118/86 97 01/11/19 05:19 70 115/78 01/11/19 04:03 98.2 F 71 18 115/78 97 01/10/19 23:17 98.1 F 18 106/59 01/10/19 23:00 73 97 01/10/19 22:00 71 20 01/10/19 21:44 76 20 135/98 01/10/19 21:43 76 135/98 01/10/19 19:37 98.0 F 74 18 135/98 97 01/10/19 18:21 72 140/95 01/10/19 16:31 98.0 F 71 18 140/94 97 01/10/19 10:14 72 20 94 01/10/19 09:58 72 147/99 01/10/19 09:57 72 147/99 - Physical Examination General: Other (Obese) HEENT: Positive: PERRL Neck: Positive: neck supple, trachea midline. Negative: JVD/HJR Neuro: Positive: Grossly Intact Abdomen: Extremities: Present: +1 Edema
== END 2019-01-11 09:50 | disposition home or self-care (01) | DRG 291 ==
LOC: ED 08:02 → 4A 16:32
PROVIDERS: ADMIT Internal Medicine; ATTEND Hospitalist
DX: I11.0 Hypertensive heart disease with heart failure (principal); J96.01 Acute respiratory failure with hypoxia; I50.43 Acute on chronic combined systolic (congestive) and diastolic (congestive) heart failure; I42.0 Dilated cardiomyopathy; E66.2 Morbid (severe) obesity with alveolar hypoventilation; Z68.41 Body mass index [BMI] 40.0-44.9, adult; I42.9 Cardiomyopathy, unspecified; I44.7 Left bundle-branch block, unspecified; T78.3XXA Angioneurotic edema, initial encounter; Y92.89 Other specified places as the place of occurrence of the external cause; T46.4X5A Adverse effect of angiotensin-converting-enzyme inhibitors, initial encounter; Z79.82 Long term (current) use of aspirin; Z91.14 Patient's other noncompliance with medication regimen
CPT/HCPCS: 36415; 71045; 71275; 80048; 80053; 83735; 83880; 84132; 84439; 84443; 84484; 85025; 85379; 93005; 93010; 93306; 96372; 96374; 96375; 96376; G0378; J0360; J1650; J1940; J2270; J2405; Q9967

== ENCOUNTER 2019-02-11 01:42 | Inpatient (IN) | payer MEDICAID ==
[2019-02-11] MEDS ORDERED: PEPCID IV ONE (02:03)
[2019-02-11] MEDS ORDERED: SOLU-Medrol IV ONE (02:03)
[2019-02-11] MEDS ORDERED: BENADRYL IV ONE (02:03)
--- NOTE | 2019-02-11 02:11 | Emergency Department Report ---
HPI - General Chief Complaint: Allergic Reaction Time Seen by Provider: 02/11/19 02:03 - HPI HPI: 48-year-old male with a past medical history of hypertension, obesity, and CHF presents to Hospital complaining of symptoms of allergic reaction that started 1 hour prior to arrival and had now been going on for 2 hours. He's been having swelling to the left side of his face, tongue, and fingers. He denies throat swelling, wheezing, or shortness of breath. Patient reports similar symptoms in the past with lisinopril-related angioedema. He has been taking hydralazine and isosorbide 1 month. He is also on Bumex, Coreg, aspirin, and spironolactone. He took 2 Benadryl tablets prior to arrival. ED Past Medical Hx - Past Medical History Previous Medical History?: Yes Hx Hypertension: Yes Hx Congestive Heart Failure: Yes - Surgical History Past Surgical History?: No - Social History Smoking Status: Never Smoker Substance Use Type: None - Medications Home Medications: Home Medications Medication Instructions Recorded Confirmed Last Taken Type Amlodipine Besylate [Norvasc] 5 mg PO QDAY #30 tablet 01/10/19 Unknown Rx Aspirin [Adult Aspirin] 81 mg PO DAILY #30 tablet. 01/10/19 Unknown Rx Bumetanide [Bumetanide 2 mg tab] 2 mg PO DAILY #30 tablet 01/10/19 Unknown Rx Carvedilol [Coreg] 25 mg PO BID #60 tablet 01/10/19 Unknown Rx Isosorb Dinit/Hydralazine [Bidil 1 each PO Q8HR #90 tablet 01/10/19 Unknown Rx 20/37.5MG] Ranitidine HCl [Zantac] 150 mg PO BID #60 tablet 01/10/19 Unknown Rx Spironolactone [Aldactone] 25 mg PO QDAY #30 tablet 01/10/19 Unknown Rx ED Review of Systems ROS: Stated complaint: FACE SWELLING CHF Other details as noted in HPI Comment: All other systems reviewed and negative Physical Exam - Physical Exam Vital Signs: Vital Signs 02/11/19 01:46 Temperature 97.7 F Pulse Rate 80 Respiratory 18 Rate Blood Pressure 146/100 O2 Sat by Pulse 98 Oximetry Physical Exam: General: No limitations, patient is alert in no acute distress Head exam: Atraumatic, normocephalic Eyes exam: Normal appearance, pupils equal reactive to light, extraocular movements intact ENT: Moist mucous membrane, swelling to left-sided lip and face. No significant tongue swelling or posterior pharynx swelling reported. No hoarseness or stridor. Neck exam: Normal inspection, full range of motion, no meningismus nontender Respiratory exam: Clear to auscultation bilateral, no wheezes, rales, crackles Cardiovascular: Normal rate and rhythm, normal heart sounds Abdomen: Soft, nondistended, and nontender, with normal bowel sounds, no rebound, or guarding Extremity: Full range of motion, mild swelling to fingers, rings removed Back: Normal Inspection, full range of motion, no tenderness Neurologic: Alert, oriented x3, cranial nerves intact, no motor or sensory deficit Psychiatric: normal affect, normal mood Skin: Warm, dry, intact ED Course Vital Signs 02/11/19 01:46 Temperature 97.7 F Pulse Rate 80 Respiratory 18 Rate Blood Pressure 146/100 O2 Sat by Pulse 98 Oximetry - Reevaluation(s) Reevaluation #1: 02/11/19 05:19 Patient received Solu-Medrol and Pepcid and was observed for several hours. There is no improvement nor worsening of his symptoms. He does complain of headache. Toradol was offered ED Medical Decision Making - Lab Data Result diagrams: 02/11/19 02:32 02/11/19 02:32 Lab Results 02/11/19 02/11/19 Range/Units 02:32 02:32 WBC 7.7 (4.5-11.0) K/mm3 RBC 4.03 (3.65-5.03) M/mm3 Hgb 13.3 (11.8-15.2) gm/dl Hct 39.1 (35.5-45.6) % MCV 97 H (84-94) fl MCH 33 H (28-32) pg MCHC 34 (32-34) % RDW 13.1 L (13.2-15.2) % Plt Count 234 (140-440) K/mm3 Lymph % (Auto) 19.6 (13.4-35.0) % [place] % (Auto) 11.6 H (0.0-7.3) % Eos % (Auto) 4.6 H (0.0-4.3) % Baso % (Auto) 0.6 (0.0-1.8) % Lymph # 1.5 (1.2-5.4) K/mm3 [place] # 0.9 H (0.0-0.8) K/mm3 Eos # 0.4 (0.0-0.4) K/mm3 Baso # 0.0 (0.0-0.1) K/mm3 Seg Neutrophils % 63.6 (40.0-70.0) % Seg Neutrophils # 4.9 (1.8-7.7) K/mm3 Sodium 138 (137-145) mmol/L Potassium 3.7 (3.6-5.0) mmol/L Chloride 100.8 (98-107) mmol/L Carbon Dioxide 27 (22-30) mmol/L Anion Gap 14 mmol/L BUN 20 (9-20) mg/dL Creatinine 1.3 (0.8-1.5) mg/dL Estimated GFR > 60 ml/min BUN/Creatinine Ratio 15 % Glucose 101 H (75-100) mg/dL Calcium 8.7 (8.4-10.2) mg/dL - Medical Decision Making Patient be admitted to the hospital for cellulitis secondary to angioedema of unknown cause at this time. He will be admitted for further observation - Differential Diagnosis allergic reaction, angioedema Critical Care Time: No Critical care attestation.: If time is entered above; I have spent that time in minutes in the direct care of this critically ill patient, excluding procedure time. ED Disposition Clinical Impression: Angioedema Disposition: OP ADMIT IP TO THIS HOSP Is pt being admited?: Yes Condition: Stable Time of Disposition: 05:18 (Dr Munoz/hosp)
[2019-02-11 02:41] LABS: Basophils % (Auto) 0.6 % (0.0-1.8); Eosinophils # (Auto) 0.4 K/mm3 (0.0-0.4); Eosinophils % (Auto) 4.6 % (0.0-4.3); Hematocrit 39.1 % (35.5-45.6); Hemoglobin 13.3 gm/dl (11.8-15.2); Lymphocytes # (Auto) 1.5 K/mm3 (1.2-5.4); Lymphocytes % (Auto) 19.6 % (13.4-35.0); Mean Corpuscular HGB Conc 34 % (32-34); Mean Corpuscular Volume 97 fl (84-94); Monocytes # (Auto) 0.9 K/mm3 (0.0-0.8); Monocytes % (Auto) 11.6 % (0.0-7.3); Platelet Count 234 K/mm3 (140-440); Red Blood Count 4.03 M/mm3 (3.65-5.03); Red Cell Distribution Width 13.1 % (13.2-15.2)
[2019-02-11 03:04] LABS: BUN/Creatinine Ratio 15; Blood Urea Nitrogen 20 mg/dL (9-20); Calcium 8.7 mg/dL (8.4-10.2); Hemolysis Index 17
[2019-02-11] MEDS ORDERED: TORADOL IV ONE (05:13)
[2019-02-11] MEDS ORDERED: ZOFRAN IV PRN (05:57)
--- NOTE | 2019-02-11 06:24 | History and Physical Report ---
History of Present Illness Date of examination: 02/11/19 History of present illness: 48-year-old man with a history of CHF, hypertension, obesity comes emergency room with complaints of swelling of the left side of his face and tongue that started after 4 PM. Denies new food, medications, not on BAHMAN inhibitor. Able to handle his saliva Review of systems Constitutional: no weight loss, chills, fever Ears, eyes, nose, mouth and throat: no nasal congestion, no nasal discharge, no sinus pressure, no vision change, no red eye. Neck: No neck pain or rigidity. Cardiovascular: no palpitations, chest pain Respiratory: no cough, shortness of breath Gastrointestinal: no hematochezia, abdominal pain Genitourinary : no frequency , no hematuria Musculoskeletal: no joint swelling or muscle ache Integumentary: no rash, no pruritis Neurological: no parathesias, no focal weakness Endocrine: no cold or heat intolerance, no polyuria or polydipsia Hematologic/Lymphatic: no easy bruising, no easy bleeding, no gland swelling Allergic/Immunologic: no urticaria, no angioedema. PAST MEDICAL HISTORY:CHF, hypertension, obesity PAST SURGICAL HISTORY: None SOCIAL HISTORY: Denies alcohol, drugs, tobacco FAMILY HISTORY: Hypertension Medications and Allergies Allergies Allergy/AdvReac Type Severity Reaction Status Date / Time lisinopril Allergy Angioedema Verified 01/07/19 08:07 tramadol Allergy Rash Verified 01/07/19 08:08 Home Medications Medication Instructions Recorded Confirmed Last Taken Type Aspirin [Adult Aspirin] 81 mg PO DAILY #30 tablet. 01/10/19 02/11/19 02/10/19 Rx Bumetanide [Bumetanide 2 mg tab] 2 mg PO DAILY #30 tablet 01/10/19 02/11/19 02/10/19 Rx Carvedilol [Coreg] 25 mg PO BID #60 tablet 01/10/19 02/11/19 02/10/19 Rx Isosorb Dinit/Hydralazine [Bidil 1 each PO Q8HR #90 tablet 01/10/19 02/11/19 02/10/19 Rx 20/37.5MG] Ranitidine HCl [Zantac] 150 mg PO BID #60 tablet 01/10/19 02/11/19 02/10/19 Rx Spironolactone [Aldactone] 25 mg PO QDAY #30 tablet 01/10/19 02/11/19 02/10/19 Rx Active Meds: Active Medications Diphenhydramine HCl (Benadryl) 25 mg IV Q6H PRN PRN Reason: Itching Enoxaparin Sodium (Lovenox) 40 mg SUB-Q QDAY [facility] Famotidine (Pepcid) 20 mg IV BID [facility] Methylprednisolone Sodium Succinate (Solu-Medrol) 125 mg IV Q6H [facility] Ondansetron HCl (Zofran) 4 mg IV Q8H PRN PRN Reason: Nausea And Vomiting Sodium Chloride (Sodium Chloride Flush Syringe 10 Ml) 10 ml IV BID [facility] Sodium Chloride (Sodium Chloride Flush Syringe 10 Ml) 10 ml IV PRN PRN PRN Reason: LINE FLUSH Exam - Physical Exam Narrative exam: General Apperance: The patient lying in bed, breathing comfortable, able to speak in full sentences HEENT: Normocephalic, atraumatic. Pupils equally round and reactive to light, EOMI, no sclericterus or JVD or thyromegaly or nodule. , no carotid bruit, mucous membranes moist, no exudate or erythema. Swelling of lower left face, lips. Heart: S1-S2, regular is rhythm Lungs: Clear to auscultation bilaterally, breathing comfortable Abdomen: Positive bowel sounds, soft, nontender, nondistended, no organomegaly Extremities: No edema cyanosis clubbing Skin: no rash, nodule, warm and dry Neuro: cranial nerves 2-12 intact, speech is fluent, motor/sensory intact - Constitutional Vitals: Temp Pulse Resp BP Pulse Ox 97.7 F 70 17 141/93 95 02/11/19 01:46 02/11/19 06:00 02/11/19 06:00 02/11/19 06:00 02/11/19 06:00 Results - Labs CBC & Chem 7: 02/11/19 02:32 02/11/19 02:32 Labs: Abnormal lab results 02/11/19 02/11/19 Range/Units 02:32 02:32 MCV 97 H (84-94) fl MCH 33 H (28-32) pg RDW 13.1 L (13.2-15.2) % [place] % (Auto) 11.6 H (0.0-7.3) % Eos % (Auto) 4.6 H (0.0-4.3) % [place] # 0.9 H (0.0-0.8) K/mm3 Glucose 101 H (75-100) mg/dL Assessment and Plan Assessment Acute allergy rreaction, ?etioogy CHF,stable hypertension obesity Plan Admit to medicine Start steroids, benadryl and pepcid Hold all medicaions, consult cardiology, monitor closely DVT prophalaxis
[2019-02-11] MEDS ORDERED: BENADRYL IV PRN (08:00)
[2019-02-11] MEDS ORDERED: SOLU-Medrol ONE (08:13)
[2019-02-11] MEDS: SOLU-Medrol IV SCH ×3 (08:15→21:16)
--- NOTE | 2019-02-11 10:09 | Event Note ---
Date: 02/11/19 Patient with angioedema. Continue solumedrol, pepcid. Change benadryl to scheduled. Fingerstick q 4hrs
[2019-02-11] MEDS: NORCO 5/325 PO PRN ×2 (11:00→21:21)
[2019-02-11] MEDS: SODIUM CHLORIDE FLUSH SYRINGE 10 ML IV SCH ×2 (11:41→21:17)
[2019-02-11] MEDS: BENADRYL IV SCH ×3 (11:41→21:16)
[2019-02-11] MEDS: LOVENOX SUB-Q SCH (11:41)
[2019-02-11] MEDS: PEPCID IV SCH ×2 (11:41→21:16)
--- NOTE | 2019-02-11 12:19 | Consultation ---
History of Present Illness Consult date: 02/11/19 Consult reason: congestive heart failure History of present illness: This is a 48-year old male who is admitted with angioedema of unknown cause. Patient is resting in bed and appears comfortable. He denies unusual shortness of breath. He has no chest pain. Patient has a long standing history of nonischemic cardiomyopathy, ejection fraction 20-25% by his most recent echocardiogram and is followed by a lead web application developer at [facility]. Patient denies recent medications changes. Medications and Allergies Allergies Allergy/AdvReac Type Severity Reaction Status Date / Time lisinopril Allergy Angioedema Verified 01/07/19 08:07 tramadol Allergy Rash Verified 01/07/19 08:08 Home Medications Medication Instructions Recorded Confirmed Last Taken Type Aspirin [Adult Aspirin] 81 mg PO DAILY #30 tablet. 01/10/19 02/11/19 02/10/19 Rx Bumetanide [Bumetanide 2 mg tab] 2 mg PO DAILY #30 tablet 01/10/19 02/11/19 02/10/19 Rx Carvedilol [Coreg] 25 mg PO BID #60 tablet 01/10/19 02/11/19 02/10/19 Rx Isosorb Dinit/Hydralazine [Bidil 1 each PO Q8HR #90 tablet 01/10/19 02/11/19 02/10/19 Rx 20/37.5MG] Ranitidine HCl [Zantac] 150 mg PO BID #60 tablet 01/10/19 02/11/19 02/10/19 Rx Spironolactone [Aldactone] 25 mg PO QDAY #30 tablet 01/10/19 02/11/19 02/10/19 Rx Active Meds: Active Medications Acetaminophen/Hydrocodone Bitart ([place] 5/325) 1 each PO Q4H PRN PRN Reason: Pain, Moderate (4-6) Last Admin: 02/11/19 11:00 Dose: 1 each Documented by: Diphenhydramine HCl (Benadryl) 25 mg IV Q6H [facility] Last Admin: 02/11/19 11:41 Dose: 25 mg Documented by: Enoxaparin Sodium (Lovenox) 40 mg SUB-Q QDAY [facility] Last Admin: 02/11/19 11:41 Dose: 40 mg Documented by: Famotidine (Pepcid) 20 mg IV BID [facility] Last Admin: 02/11/19 11:41 Dose: 20 mg Documented by: Methylprednisolone Sodium Succinate (Solu-Medrol) 125 mg IV Q6H [facility] Last Admin: 02/11/19 08:15 Dose: 125 mg Documented by: Morphine Sulfate (Morphine) 2 mg IV Q6H PRN PRN Reason: Pain, Moderate (4-6) Ondansetron HCl (Zofran) 4 mg IV Q8H PRN PRN Reason: Nausea And Vomiting Sodium Chloride (Sodium Chloride Flush Syringe 10 Ml) 10 ml IV BID [facility] Last Admin: 02/11/19 11:41 Dose: 10 ml Documented by: Sodium Chloride (Sodium Chloride Flush Syringe 10 Ml) 10 ml IV PRN PRN PRN Reason: LINE FLUSH Physical Examination Vital Signs Temp Pulse Resp BP Pulse Ox 97.7 F 80 18 146/100 98 02/11/19 01:46 02/11/19 01:46 02/11/19 01:46 02/11/19 01:46 02/11/19 01:46 General appearance: no acute distress HEENT: Positive: PERRL Cardiac: Positive: Reg Rate and Rhythm Lungs: Positive: Decreased Breath Sounds Extremities: Absent: edema Results 02/11/19 02:32 02/11/19 02:32 CBC 02/11/19 Range/Units 02:32 WBC 7.7 (4.5-11.0) K/mm3 RBC 4.03 (3.65-5.03) M/mm3 Hgb 13.3 (11.8-15.2) gm/dl Hct 39.1 (35.5-45.6) % Plt Count 234 (140-440) K/mm3 Lymph # 1.5 (1.2-5.4) K/mm3 Day # 0.9 H (0.0-0.8) K/mm3 Eos # 0.4 (0.0-0.4) K/mm3 Baso # 0.0 (0.0-0.1) K/mm3 Comprehensive Metabolic Panel 02/11/19 Range/Units 02:32 Sodium 138 (137-145) mmol/L Potassium 3.7 (3.6-5.0) mmol/L Chloride 100.8 (98-107) mmol/L Carbon Dioxide 27 (22-30) mmol/L BUN 20 (9-20) mg/dL Creatinine 1.3 (0.8-1.5) mg/dL Glucose 101 H (75-100) mg/dL Calcium 8.7 (8.4-10.2) mg/dL Assessment and Plan Angioedema -unknown cause Non-ischemic cardiomyopathy Cath 2013 - normal coronaries MRI 2013 - LVEF 47%, findings consistent with non-ischemic cardiomyopathy Incomplete LBBB ACEi induced angioedema
[2019-02-11] MEDS: MORPHINE IV PRN (17:49)
[2019-02-11] MEDS: SODIUM CHLORIDE FLUSH SYRINGE 10 ML IV PRN (21:17)
[2019-02-12] MEDS: SOLU-Medrol IV SCH ×4 (02:50→21:31)
[2019-02-12] MEDS: BENADRYL IV SCH ×4 (05:07→21:33)
[2019-02-12] MEDS: SODIUM CHLORIDE FLUSH SYRINGE 10 ML IV PRN (05:08)
[2019-02-12 05:51] LABS: Hematocrit 41.6 % (35.5-45.6); Mean Corpuscular HGB Conc 34 % (32-34); Mean Corpuscular Volume 98 fl (84-94); Platelet Count 273 K/mm3 (140-440); Red Blood Count 4.23 M/mm3 (3.65-5.03); Red Cell Distribution Width 13.5 % (13.2-15.2)
[2019-02-12 06:10] LABS: BUN/Creatinine Ratio 22; Blood Urea Nitrogen 24 mg/dL (9-20); Calcium 9.1 mg/dL (8.4-10.2); Hemolysis Index 23
[2019-02-12 08:30] LABS: Basophils % (Manual) 0 % (0.0-1.8); Eosinophils % (Manual) 0 % (0.0-4.3); Total Cells Counted 100
[2019-02-12 08:31] LABS: Anisocytosis Few; Ovalocytes Rare; Platelet Estimate Consistent w Auto
[2019-02-12] MEDS: NORCO 5/325 PO PRN ×2 (09:06→17:25)
[2019-02-12] MEDS ORDERED: NON-FORMULARY (Ranitidine Hcl [Zantac] 150 MG) PO SCH (10:00)
[2019-02-12] MEDS: MORPHINE IV PRN (11:10)
[2019-02-12] MEDS: LOVENOX SUB-Q SCH (11:10)
[2019-02-12] MEDS: HALFPRIN EC PO SCH (11:11)
[2019-02-12] MEDS: PEPCID PO SCH ×2 (11:11→21:32)
--- NOTE | 2019-02-12 15:52 | Progress Note ---
Assessment and Plan Assessment and plan: Angioedema Continue solumedrol, Benadryl, Pepcid Etiology unclear He was on Lisinopril which was stopped few months ago because of Angioedema Hypertension Monitor BP Chronic CHF Cont Coreg Morbid obesity. I counseled History Interval history: Swelling left part of face Tongue swelling Hospitalist Physical - Physical exam Narrative exam: Gen: Not in acute distress, lying in bed,morbid obesity HEENT: Tongue swollen, Lower lip swelling, face swelling on left Neck: supple, no JVD Heart: S1 and S2 reg, no murmurs, rubs or gallop Lungs: Clear, no crackles or wheeze Abd: soft, non tender, not distended, normal BS Ext: No edema, no clubbing, no cyanosis Neuro:awake,alert, Oriented X 3. No focal signs Psych: Normal mood - Constitutional Vitals: Temp Pulse Resp BP Pulse Ox 98.0 F 81 20 140/83 97 02/12/19 12:31 02/12/19 12:31 02/12/19 12:31 02/12/19 12:31 02/12/19 12:35 Results - Labs CBC & Chem 7: 02/12/19 05:19 02/12/19 05:19 Labs: Laboratory Last Values WBC 14.6 K/mm3 (4.5-11.0) H 02/12/19 05:19 RBC 4.23 M/mm3 (3.65-5.03) 02/12/19 05:19 Hgb 14.0 gm/dl (11.8-15.2) 02/12/19 05:19 Hct 41.6 % (35.5-45.6) 02/12/19 05:19 MCV 98 fl (84-94) H 02/12/19 05:19 MCH 33 pg (28-32) H 02/12/19 05:19 MCHC 34 % (32-34) 02/12/19 05:19 RDW 13.5 % (13.2-15.2) 02/12/19 05:19 Plt Count 273 K/mm3 (140-440) 02/12/19 05:19 Lymph % (Auto) 19.6 % (13.4-35.0) 02/11/19 02:32 [place] % (Auto) 11.6 % (0.0-7.3) H 02/11/19 02:32 Eos % (Auto) 4.6 % (0.0-4.3) H 02/11/19 02:32 Baso % (Auto) 0.6 % (0.0-1.8) 02/11/19 02:32 Lymph # 1.5 K/mm3 (1.2-5.4) 02/11/19 02:32 [place] # 0.9 K/mm3 (0.0-0.8) H 02/11/19 02:32 Eos # 0.4 K/mm3 (0.0-0.4) 02/11/19 02:32 Baso # 0.0 K/mm3 (0.0-0.1) 02/11/19 02:32 Add Manual Diff Complete 02/12/19 05:19 Total Counted 100 02/12/19 05:19 Seg Neutrophils % Director On Air 02/12/19 05:19 Seg Neuts % (Manual) 92.0 % (40.0-70.0) H 02/12/19 05:19 0 % 02/12/19 05:19 7.0 % (13.4-35.0) L 02/12/19 05:19 Reactive Lymphs % (Man) 0 % 02/12/19 05:19 1.0 % (0.0-7.3) 02/12/19 05:19 0 % (0.0-4.3) 02/12/19 05:19 0 % (0.0-1.8) 02/12/19 05:19 0 % 02/12/19 05:19 0 % 02/12/19 05:19 0 % 02/12/19 05:19 0 % 02/12/19 05:19 Nucleated RBC % Not Reportable 02/12/19 05:19 Seg Neutrophils # 4.9 K/mm3 (1.8-7.7) 02/11/19 02:32 Seg Neutrophils # Man 13.4 K/mm3 (1.8-7.7) H 02/12/19 05:19 Band Neutrophils # 0.0 K/mm3 02/12/19 05:19 1.0 K/mm3 (1.2-5.4) L 02/12/19 05:19 Abs React Lymphs (Man) 0.0 K/mm3 02/12/19 05:19 0.1 K/mm3 (0.0-0.8) 02/12/19 05:19 0.0 K/mm3 (0.0-0.4) 02/12/19 05:19 0.0 K/mm3 (0.0-0.1) 02/12/19 05:19 0.0 K/mm3 02/12/19 05:19 0.0 K/mm3 02/12/19 05:19 0.0 K/mm3 02/12/19 05:19 Blast Cells # 0.0 K/mm3 02/12/19 05:19 WBC Morphology Not Reportable 02/12/19 05:19 Hypersegmented Neuts Not Reportable 02/12/19 05:19 Hyposegmented Neuts Not Reportable 02/12/19 05:19 Hypogranular Neuts Not Reportable 02/12/19 05:19 Not Reportable 02/12/19 05:19 Not Reportable 02/12/19 05:19 Not Reportable 02/12/19 05:19 Not Reportable 02/12/19 05:19 Not Reportable 02/12/19 05:19 Not Reportable 02/12/19 05:19 Consistent w auto 02/12/19 05:19 Not Reportable 02/12/19 05:19 Plt Clumps, EDTA Not Reportable 02/12/19 05:19 Not Reportable 02/12/19 05:19 Not Reportable 02/12/19 05:19 Not Reportable 02/12/19 05:19 Plt Morphology Comment Not Reportable 02/12/19 05:19 RBC Morphology Not Reportable 02/12/19 05:19 Dimorphic RBCs Not Reportable 02/12/19 05:19 Not Reportable 02/12/19 05:19 Not Reportable 02/12/19 05:19 Not Reportable 02/12/19 05:19 Few 02/12/19 05:19 Not Reportable 02/12/19 05:19 Not Reportable 02/12/19 05:19 Not Reportable 02/12/19 05:19 Not Reportable 02/12/19 05:19 Not Reportable 02/12/19 05:19 Not Reportable 02/12/19 05:19 Not Reportable 02/12/19 05:19 Rare 02/12/19 05:19 Not Reportable 02/12/19 05:19 Not Reportable 02/12/19 05:19 Not Reportable 02/12/19 05:19 Not Reportable 02/12/19 05:19 Not Reportable 02/12/19 05:19 Not Reportable 02/12/19 05:19 Not Reportable 02/12/19 05:19 Acanthocytes (Spur) Not Reportable 02/12/19 05:19 Rouleaux Not Reportable 02/12/19 05:19 Not Reportable 02/12/19 05:19 Not Reportable 02/12/19 05:19 Not Reportable 02/12/19 05:19 Not Reportable 02/12/19 05:19 Hem Pathologist Commnt No 02/12/19 05:19 Sodium 138 mmol/L (137-145) 02/12/19 05:19 Potassium 4.7 mmol/L (3.6-5.0) D 02/12/19 05:19 Chloride 102.9 mmol/L (98-107) 02/12/19 05:19 Carbon Dioxide 24 mmol/L (22-30) 02/12/19 05:19 16 mmol/L 02/12/19 05:19 BUN 24 mg/dL (9-20) H 02/12/19 05:19 1.1 mg/dL (0.8-1.5) 02/12/19 05:19 Estimated GFR > 60 ml/min 02/12/19 05:19 22 % 02/12/19 05:19 Glucose 176 mg/dL (75-100) H 02/12/19 05:19 POC Glucose 161 (70-105) H 02/12/19 04:59 Calcium 9.1 mg/dL (8.4-10.2) 02/12/19 05:19 Active Medications - Current Medications Current Medications: Generic Name Dose Route Start Last Admin Trade Name Freq PRN Reason Stop Dose Admin Acetaminophen/Hydrocodone Bitart 1 each 02/11/19 09:59 02/12/19 09:06 [place] 5/325 PO 1 each Q4H PRN Administration Pain, Moderate (4-6) Aspirin 81 mg 02/12/19 10:00 02/12/19 11:11 Halfprin Ec PO 81 mg DAILY [facility] Administration Bumetanide 2 mg 02/12/19 14:00 Bumex PO QDAY [facility] Carvedilol 25 mg 02/12/19 14:00 Coreg PO BID [facility] Diphenhydramine HCl 25 mg 02/11/19 10:02 02/12/19 05:07 Benadryl IV 25 mg Q6H [facility] Administration Enoxaparin Sodium 40 mg 02/11/19 10:00 02/12/19 11:10 Lovenox SUB-Q 40 mg QDAY [facility] Administration Famotidine 20 mg 02/12/19 10:00 02/12/19 11:11 Pepcid PO 20 mg BID [facility] Administration Isosorbide Dinitrate/Hydralazine 1 each 02/12/19 14:00 Bidil 20/37.5mg PO Q8HR [facility] Methylprednisolone Sodium Succinate 125 mg 02/11/19 08:00 02/12/19 09:06 Solu-Medrol IV 125 mg Q6H [facility] Administration Morphine Sulfate 2 mg 02/11/19 12:00 02/12/19 11:10 Morphine IV 2 mg Q6H PRN Administration Pain, Moderate (4-6) Ondansetron HCl 4 mg 02/11/19 05:57 Zofran IV Q8H PRN Nausea And Vomiting Sodium Chloride 10 ml 02/11/19 10:00 02/11/19 21:17 Sodium Chloride Flush Syringe 10 Ml IV 10 ml BID [facility] Administration Sodium Chloride 10 ml 02/11/19 05:57 02/12/19 05:08 Sodium Chloride Flush Syringe 10 Ml IV 10 ml PRN PRN Administration LINE FLUSH Spironolactone 25 mg 02/12/19 14:00 Aldactone PO QDAY [facility]
[2019-02-12] MEDS: ALDACTONE PO SCH (17:17)
[2019-02-12] MEDS: BIDIL 20/37.5MG PO SCH ×2 (17:17→23:46)
[2019-02-12] MEDS: COREG PO SCH ×2 (17:25→21:32)
[2019-02-12] MEDS: BUMEX PO SCH (17:32)
[2019-02-12] MEDS: SODIUM CHLORIDE FLUSH SYRINGE 10 ML IV SCH (21:32)
[2019-02-13] MEDS: SOLU-Medrol IV SCH ×2 (02:50→10:03)
[2019-02-13] MEDS: BENADRYL IV SCH (04:00)
[2019-02-13] MEDS: BIDIL 20/37.5MG PO SCH (05:25)
[2019-02-13] MEDS: PEPCID PO SCH (10:03)
[2019-02-13] MEDS: ALDACTONE PO SCH (10:03)
[2019-02-13] MEDS: HALFPRIN EC PO SCH (10:03)
[2019-02-13] MEDS: COREG PO SCH (10:04)
[2019-02-13] MEDS: LOVENOX SUB-Q SCH (10:04)
[2019-02-13] MEDS: SODIUM CHLORIDE FLUSH SYRINGE 10 ML IV SCH (10:05)
[2019-02-13 10:06] VITALS: BP 102/69
[2019-02-13] MEDS: BUMEX PO SCH (10:19)
[2019-02-13] MEDS: NORCO 5/325 PO PRN (10:19)
--- NOTE | 2019-02-13 12:01 | Progress Note ---
Assessment and Plan - Patient Problems (1) Heart failure Current Visit: Yes Status: Acute Plan to address problem: Patient was admitted with angioedema, and allergic reaction with an unknown allergen at this time. No cardiac complaints, no active cardiac issues. We'll continue the patient's home medications for underlying systolic LV dysfunction, follow-up with his primary petroleum refinery operator Dr. Gr in [place] one to 2 weeks post discharge. No further cardiac input, we will follow on a when necessary basis. Subjective Date of service: 02/13/19 Interval history: The patient is comfortable, no cardiac complaints. His allergic reaction is largely resolved, and he is able to swallow, tolerating his heart failure medicines. Objective Vital Signs Temp Pulse Pulse Pulse Resp BP Pulse Ox 02/13/19 10:04 102/69 02/13/19 10:03 70 102/69 02/13/19 05:25 64 112/71 02/13/19 04:03 98.0 F 64 18 112/71 95 02/13/19 03:00 75 02/12/19 23:46 75 127/77 02/12/19 23:40 98.3 F 73 18 127/77 96 02/12/19 22:00 77 77 20 99 02/12/19 21:32 72 116/74 02/12/19 19:16 98.1 F 72 18 116/74 99 02/12/19 19:00 75 02/12/19 17:25 20 127/85 02/12/19 16:34 98.4 F 74 20 127/85 93 02/12/19 12:35 97 02/12/19 12:31 98.0 F 79 20 140/83 93 - Physical Examination General: No Apparent Distress HEENT: Positive: PERRL Neck: Positive: neck supple Cardiac: Positive: Reg Rate and Rhythm Lungs: Positive: Decreased Breath Sounds Neuro: Positive: Grossly Intact Abdomen: Positive: Soft Skin: Positive: Clear Extremities: Absent: edema
[2019-02-13] MEDS: MORPHINE IV PRN (12:56)
--- NOTE | 2019-02-13 14:19 | Discharge Summary ---
Providers - Providers Date of Admission: 02/11/19 07:44 Date of discharge: 02/13/19 Attending physician: ANTIONE GARCIA 02/11/19 06:00 Consult to Physician [CONS] Routine Comment: Consulting Provider: TOVA ORDONEZ Physician Instructions: Reason For Exam: angioedema, chf 02/11/19 09:16 Speech Therapy Evaluation and Treat [CONS] Urgent Reason For Exam: left facial swelling Primary care physician: JANET POLK Hospitalization Condition: Fair Disposition: DC-01 TO HOME OR SELFCARE Core Measure Documentation - Palliative Care Palliative Care/ Comfort Measures: Not Applicable - Core Measures Any of the following diagnoses?: none Exam - Constitutional Vitals: Temp Pulse Resp BP Pulse Ox 98.0 F 70 18 102/69 95 02/13/19 04:03 02/13/19 10:03 02/13/19 04:03 02/13/19 10:04 02/13/19 04:03 Plan Diet: low fat, low cholesterol, low salt Additional Instructions: 1.Follow up with PCP or [facility] in 1 week. 2.Follow up with Dr. Abel, instrument sterilizer in 1-2 weeks. 3.No driving while on Benadryl
== END 2019-02-13 14:47 | disposition home or self-care (01) | DRG 916 ==
LOC: ED 01:42 → SUATTDRO 01:42 → 4A 07:44
PROVIDERS: ADMIT Internal Medicine; ATTEND Internal Medicine
DX: T78.3XXA Angioneurotic edema, initial encounter (principal); I42.9 Cardiomyopathy, unspecified; E66.9 Obesity, unspecified; I44.7 Left bundle-branch block, unspecified; T44.5X5A Adverse effect of predominantly beta-adrenoreceptor agonists, initial encounter; I11.0 Hypertensive heart disease with heart failure; I50.22 Chronic systolic (congestive) heart failure; Z68.42 Body mass index [BMI] 45.0-49.9, adult; Z79.82 Long term (current) use of aspirin; Z82.49 Family history of ischemic heart disease and other diseases of the circulatory system; Z88.6 Allergy status to analgesic agent; Y92.098 Other place in other non-institutional residence as the place of occurrence of the external cause
CPT/HCPCS: 36415; 80048; 82962; 85007; 85025; 87116; 96374; 96375; G0378; J1200; J1650; J1885; J2270; J2930

== ENCOUNTER 2019-08-16 06:18 | Day surgery (SDC) | payer MEDICAID ==
[~2019-08-16 06:18] MED LIST: LACTATED RINGERS 1,000 ML IV SCH
[2019-08-16] MEDS ORDERED: BACTERIOSTATIC SODIUM CHLORIDE 0.9% 30 ML VIAL INFILTRATI ONE (06:38)
[2019-08-16] MEDS ORDERED: fentaNYL 100 MCG/2 ML INJ ONE (07:38)
[2019-08-16] MEDS ORDERED: LIDOCAINE MPF (2%) 20 MG/1 ML VIAL 5 ML ONE (07:38)
[2019-08-16] MEDS ORDERED: PROPOFOL 200 MG/20 ML VIAL IV ONE (07:39)
[2019-08-16] MEDS ORDERED: ceFAZolin/Water 2 GM/20 ML 2 GM/20 ML SYRINGE IV ONE (08:00)
[2019-08-16] MEDS ORDERED: ceFAZolin/Water 2 GM/20 ML 2 GM/20 ML SYRINGE IV NR (08:08)
[2019-08-16] MEDS ORDERED: LIDOCAINE 2% UROJECT 10 ML JELLY ONE (08:09)
[2019-08-16] MEDS ORDERED: MIDAZOLAM 2 MG/2 ML INJ ONE (08:25)
[2019-08-16] MEDS ORDERED: SODIUM CHLORIDE 0.9% IRR 1,000 ML BOTTLE IR ONE (08:31)
[2019-08-16] MEDS ORDERED: WATER FOR IRRIG STERILE 2000 ML IR ONE (08:31)
[2019-08-16] MEDS ORDERED: KETAMINE 500 MG/5 ML VIAL MDV ONE (08:47)
--- NOTE | 2019-08-16 08:55 | Operative Report ---
PREOPERATIVE DIAGNOSES: Hematuria, dysuria. POSTOPERATIVE DIAGNOSES: Hematuria, dysuria with mild erythema posterior wall of the bladder. PROCEDURE: Cystoscopy, retrogrades, biopsy. SURGEON: Dr. Pineda. ANESTHESIA: MAC. FINDINGS: This is a gentleman with severe heart disease, could not be put safely to sleep, now presents for cystoscopy. All risks and implications discussed. DESCRIPTION OF PROCEDURE: The patient was brought to the operating room and placed on the operating table. Following induction of anesthesia, placed in lithotomy position, prepped and draped in usual sterile fashion. Cystourethroscopy showed a normal urethra, normal prostatic urethra, open bladder neck. Posterior wall slight erythema. The urine was collected for cytology. Retrograde showed a delicate system with no persistent filling defects. There was no active bleeding. A posterior wall biopsy was obtained. Area was cauterized. The patient tolerated the procedure well. We tried to start this and do this with the flexible scope, but it was not available, could not be found. We did this with the rigid scope under MAC anesthesia. The patient tolerated the procedure well and brought to recovery in stable condition. JOB# [id number] TONY/ANGEL
--- NOTE | 2019-08-16 09:05 | Anesthesia Day of Surgery ---
Anesthesia Day of Surgery - Day of Surgery Patient Examined: Yes Patient H&P Reviewed: Yes Patient is NPO: Yes Beta Blockers: Yes (last dose 08/15/2019 1400)
--- NOTE | 2019-08-16 09:05 | Anesthesia Consultation ---
Anesthesia Consult and Med Hx Date of service: 08/16/19 - Airway Anesthetic Teeth Evaluation: Partials (upper) ROM Head & Neck: Adequate Mental/Hyoid Distance: Adequate Mallampati Class: Class III Intubation Access Assessment: Possibly Difficult - Pulmonary Exam CTA: Yes - Cardiac Exam Cardiac Exam: RRR - Pre-Operative Health Status ASA Pre-Surgery Classification: ASA4 Proposed Anesthetic Plan: MAC - Pulmonary Hx Smoking: No Hx Respiratory Symptoms: Yes (stable 1 pillow orthopnea) Hx Sleep Apnea: No (CANELO PRE SCREEN HIGH RISK) - Cardiovascular System Hx Hypertension: Yes (took antihypertensives yesterday afternoon) Hx Heart Attack/AMI: No (NICM w/ EF 20-25%) Hx Percutaneous Transluminal Coronary Angioplasty (PTCA): No Hx Pacemaker: Yes Hx Internal Defibrillator: Yes (for primary prevention) - Central Nervous System CVA: No Hx Psychiatric Problems: Yes (anxiety) - Gastrointestinal Hx Gastroesophageal Reflux Disease: No - Endocrine Hx Renal Disease: No Hx Liver Disease: No Hx Insulin Dependent Diabetes: No Hx Non-Insulin Dependent Diabetes: No Hx Thyroid Disease: No - Other Systems Hx Obesity: Yes (BMI 49) - Additional Comments Anesthesia Medical History Comments: No hx anesthetic complications. Patient last saw material handler 1st shift 1 month ago and reports condition is stable. Most recent cardiac records in chart are from 01/2019 and EP records from 06/2019. No signs/symptoms acute decompensation today.
--- NOTE | 2019-08-16 09:24 | Fluoroscopy Report ---
INTRAOPERATIVE FLUOROSCOPY: RETROGRADE UROGRAPHY INDICATION: HEMATURIA. TECHNIQUE: Intraoperative spot images were obtained during the procedure. FINDINGS: Limited imaging from bilateral retrograde urography demonstrates no distinct abnormality along the op acified ureters/renal collecting systems. Please see the procedure report for further details. Fluoroscopy Time: 0.5 minutes. Fluoroscopy Images: 5. Signer Name: Francisco Mackey MD Signed: 08/16/2019 9:20 AM Workstation Name: [id number]
--- NOTE | 2019-08-16 10:10 | Post Operative Note ---
Date of procedure: 08/16/19 Pre-op diagnosis: hematuria Post-op diagnosis: same Findings: min erythema Procedure: cysto bx rpg Anesthesia: MAC Surgeon: PHUONG LÓPEZ Estimated blood loss: none Pathology: list (bladder) Specimen disposition: to lab Condition: stable Disposition: PACU
--- NOTE | 2019-08-16 10:11 | Discharge Summary ---
Short Stay Discharge Plan Activity: other (no straining ) Weight Bearing Status: Full Weight Bearing Diet: low fat, low cholesterol, low salt Special Instructions: other (inc fluids ) Additional Instructions: APPOINTMENT - DR LÓPEZ WANTS TO SEE YOU IN HIS OFFICE IN 7 DAYS. CALL FOR APPOINTMENT AND FOR ANY QUESTIONS OR CONCERNS RELATED TO YOUR PROCEDURE. DIET -LOW FAT, LOW SALT, LOW CHOLESTEROL . DO DRINK 4-8 CUPS WATER PER PER DAY Follow up with: JANET POLK MD [Primary Care Provider] - 7 Days PHUONG LÓPEZ MD [Staff Physician] - 7 Days Forms: [facility] [place] [facility]
[2019-08-16 11:02] VITALS: BP 113/77
--- NOTE | 2019-08-16 12:01 | Post Anesthesia Evaluation ---
- Post Anesthesia Evaluation Patient Participated: Yes Airway Patent: Yes Stable Respiratory Function: Yes Nausea/Vomiting: No Temp > 96.8F: Yes Pain Manageable: Yes Adequeate Hydration: Yes Anesthesia Complications: No
== END 2019-08-16 06:19 | disposition home or self-care (01) ==
LOC: OR 06:18
PROVIDERS: ATTEND Urology
DX: N30.91 Cystitis, unspecified with hematuria (principal); R30.0 Dysuria; I11.0 Hypertensive heart disease with heart failure; I50.33 Acute on chronic diastolic (congestive) heart failure; E66.2 Morbid (severe) obesity with alveolar hypoventilation; K21.9 Gastro-esophageal reflux disease without esophagitis; F41.9 Anxiety disorder, unspecified; Z88.8 Allergy status to other drugs, medicaments and biological substances; Z79.899 Other long term (current) drug therapy; Z68.42 Body mass index [BMI] 45.0-49.9, adult; Z95.0 Presence of cardiac pacemaker; Z98.890 Other specified postprocedural states
CPT/HCPCS: 36415; 52204; 74420; 84132; 88112; 88305; A4217; C1758; J0690; J2250; J2704; J7120; Q9967; J3010